=== PATIENT | female | born 1950 | race Caucasian/White ===

== ENCOUNTER 2020-06-09 10:30 | Outpatient (REF) | payer MEDICARE, SELFPAY ==
[2020-06-09 13:21] LABS: Estimated Average Glucose 163 mg/dL; Hemoglobin A1c % 7.3 %
== END 2020-06-09 10:31 | disposition home or self-care (01) ==
LOC: HO.MANLDS 10:30
PROVIDERS: PCP Internal Medicine; Visit Provider Internal Medicine
DX: E11.9 Type 2 diabetes mellitus without complications (principal)
CPT/HCPCS: 83036

== ENCOUNTER 2020-12-23 14:25 | Outpatient (REF) | payer MEDICARE, SELFPAY ==
[2020-12-23 18:08] LABS: Estimated Average Glucose 194 mg/dL; Hemoglobin A1c % 8.4 %
[2020-12-24 07:28] LABS: ~HepC Num1 0.09 S/CO (0.00-0.79); ~Hepatitis C Antibody Nonreactive (Nonreactive)
== END 2020-12-23 14:26 | disposition home or self-care (01) ==
LOC: HO.MANLDS 14:25
PROVIDERS: Visit Provider Internal Medicine
DX: Z11.59 Encounter for screening for other viral diseases (principal); E11.9 Type 2 diabetes mellitus without complications
CPT/HCPCS: 36415; 83036; 86803

== ENCOUNTER 2021-03-06 10:43 | Outpatient (REF) | payer MEDICARE, SELFPAY ==
[2021-03-06 13:36] LABS: Estimated Average Glucose 169 mg/dL; Hemoglobin A1c % 7.5 %
== END 2021-03-06 10:44 | disposition home or self-care (01) ==
LOC: HO.MANLDS 10:43
PROVIDERS: PCP Internal Medicine; Visit Provider Internal Medicine
DX: E11.9 Type 2 diabetes mellitus without complications (principal)
CPT/HCPCS: 36415; 83036

== ENCOUNTER 2021-06-12 10:34 | Outpatient (REF) | payer MEDICARE, SELFPAY ==
[2021-06-12 14:08] LABS: Hematocrit 38.7 % (37.0-47.0); Hemoglobin 12.7 g/dl (12.0-16.0); Mean Corpuscular HGB Conc 32.8 g/dl (31.0-35.0); Mean Corpuscular Hemoglobin 27.9 pg (27.0-33.0); Mean Corpuscular Volume 85.1 fL (80.0-98.0); Mean Platelet Volume 9.6 fL (9.4-12.3); Platelet Count 223 X10*3/uL (160-400); Red Blood Count 4.55 X10*6/uL (4.20-5.50); Red Cell Distribution Width 13.2 % (11.0-16.0); White Blood Count 8.6 X10*3/uL (4.8-10.8)
[2021-06-12 14:22] LABS: Estimated Average Glucose 194 mg/dL; Hemoglobin A1c % 8.4 %
[2021-06-12 14:35] LABS: Alanine Aminotransferase 21 U/L (0-31); Albumin Level 3.7 g/dL (3.5-5.0); Alkaline Phosphatase 167 U/L (39-117); Anion Gap 13 (12-20); Aspartate Amino Transferase 16 U/L (5-31); Bilirubin Total 0.7 mg/dL (0.0-1.0); Blood Urea Nitrogen 21 mg/dL (9-16); Calcium 9.2 mg/dL (8.4-10.2); Carbon Dioxide 27 mmol/L (22-29); Chloride 105 mmol/L (96-108); Cholesterol 196 mg/dL; Estimated Glomerular Filt Rate 58; Glucose Fasting 264 mg/dL (60-99); HDL Cholesterol 41 mg/dL; LDL Cholesterol Calculated 93 mg/dl; Potassium 4.9 mmol/L (3.3-5.1); Sodium 140 mmol/L (135-145); Total Protein 6.3 g/dL (6.5-8.0); Triglycerides 311 mg/dL
== END 2021-06-12 10:35 | disposition home or self-care (01) ==
LOC: HO.MANLDS 10:34
PROVIDERS: PCP Internal Medicine; Visit Provider Internal Medicine
DX: E11.9 Type 2 diabetes mellitus without complications (principal); I10 Essential (primary) hypertension
CPT/HCPCS: 36415; 80053; 80061; 83036; 85027

== ENCOUNTER 2021-09-11 09:06 | Outpatient (REF) | payer MEDICARE, SELFPAY ==
[2021-09-11 11:27] LABS: Estimated Average Glucose 160 mg/dL; Hemoglobin A1c % 7.2 %
== END 2021-09-11 09:07 | disposition home or self-care (01) ==
LOC: HO.MANLDS 09:06
PROVIDERS: PCP Internal Medicine; Visit Provider Internal Medicine
DX: E11.9 Type 2 diabetes mellitus without complications (principal)
CPT/HCPCS: 36415; 83036

== ENCOUNTER 2022-02-17 09:24 | Outpatient (REF) | payer MEDICARE, SELFPAY ==
[2022-02-17 11:45] LABS: Estimated Average Glucose 143 mg/dL; Hemoglobin A1c % 6.6 %
== END 2022-02-17 09:25 | disposition home or self-care (01) ==
LOC: HO.MANLDS 09:24
PROVIDERS: Visit Provider Internal Medicine
DX: E11.9 Type 2 diabetes mellitus without complications (principal)
CPT/HCPCS: 36415; 83036

== ENCOUNTER 2022-02-26 11:04 | Outpatient (REF) | payer MEDICARE, SELFPAY | END 2022-02-26 11:05 | disposition home or self-care (01) | LOC: HO.MANLDS 11:04 | PROVIDERS: Visit Provider Internal Medicine | DX: N39.0 Urinary tract infection, site not specified (principal) | CPT/HCPCS: 87086; 87088; 87186 ==

== ENCOUNTER 2022-08-31 09:47 | Outpatient (REF) | payer MEDICARE, SELFPAY ==
[2022-08-31 12:02] LABS: Estimated Average Glucose 154 mg/dL
== END 2022-08-31 09:48 | disposition home or self-care (01) ==
LOC: HO.MANLDS 09:47
PROVIDERS: Visit Provider Internal Medicine
DX: E11.9 Type 2 diabetes mellitus without complications (principal)
CPT/HCPCS: 36415; 83036

== ENCOUNTER 2022-11-19 09:22 | Outpatient (REF) | payer MEDICARE, SELFPAY ==
[2022-11-19 11:47] LABS: Estimated Average Glucose 143 mg/dL; Hemoglobin A1c % 6.6 %
== END 2022-11-19 09:23 | disposition home or self-care (01) ==
LOC: HO.MANLDS 09:22
PROVIDERS: Visit Provider Internal Medicine
DX: E11.9 Type 2 diabetes mellitus without complications (principal)
CPT/HCPCS: 36415; 83036

== ENCOUNTER 2023-02-28 08:54 | Outpatient (REF) | payer MEDICARE, SELFPAY ==
[2023-02-28 13:56] LABS: Estimated Average Glucose 126 mg/dL
== END 2023-02-28 08:55 | disposition home or self-care (01) ==
LOC: HO.MANLDS 08:54
PROVIDERS: Visit Provider Internal Medicine
DX: E11.9 Type 2 diabetes mellitus without complications (principal)
CPT/HCPCS: 36415; 83036

== ENCOUNTER 2023-05-30 10:10 | Outpatient (REF) | payer MEDICARE, SELFPAY ==
[2023-05-30 13:41] LABS: Estimated Average Glucose 134 mg/dL; Hemoglobin A1c % 6.3 % (<6.0)
[2023-05-30 14:24] LABS: Alanine Aminotransferase 20 U/L (0-31); Albumin Level 3.5 g/dL (3.5-5.0); Alkaline Phosphatase 171 U/L (39-117); Anion Gap 11 (12-20); Aspartate Amino Transferase 21 U/L (5-31); Bilirubin Total 0.4 mg/dL (0.0-1.0); Blood Urea Nitrogen 16 mg/dL (9-16); Calcium 9.1 mg/dL (8.4-10.2); Carbon Dioxide 27 mmol/L (22-29); Chloride 107 mmol/L (96-108); Cholesterol 140 mg/dL (<200); Estimated Glomerular Filt Rate > 60; Glucose Random 343 mg/dL (60-115); HDL Cholesterol 40 mg/dL (>40); LDL Cholesterol Calculated 42 mg/dL (<100); Potassium 3.9 mmol/L (3.3-5.1); Sodium 141 mmol/L (135-145); Total Protein 6.4 g/dL (6.5-8.0); Triglycerides 290 mg/dL (<150)
== END 2023-05-30 10:11 | disposition home or self-care (01) ==
LOC: HO.MANLDS 10:10
PROVIDERS: Visit Provider Internal Medicine
DX: E11.9 Type 2 diabetes mellitus without complications (principal)
CPT/HCPCS: 36415; 80053; 80061; 83036

== ENCOUNTER 2023-08-31 10:27 | Outpatient (REF) | payer MEDICARE, SELFPAY ==
[2023-08-31 13:52] LABS: Estimated Average Glucose 126 mg/dL
== END 2023-08-31 10:28 | disposition home or self-care (01) ==
LOC: HO.MANLDS 10:27
PROVIDERS: Visit Provider Internal Medicine
DX: E11.9 Type 2 diabetes mellitus without complications (principal)
CPT/HCPCS: 36415; 83036

== ENCOUNTER 2023-12-19 07:55 | Outpatient (REF) | payer MEDICARE, SELFPAY ==
[2023-12-19 13:32] LABS: Estimated Average Glucose 123 mg/dL; Hemoglobin A1c % 5.9 % (<6.0)
[2023-12-19 13:42] LABS: Alanine Aminotransferase 30 U/L (0-31); Albumin Level 3.8 g/dL (3.5-5.0); Alkaline Phosphatase 195 U/L (39-117); Anion Gap 9 (12-20); Aspartate Amino Transferase 23 U/L (5-31); Bilirubin Total 0.6 mg/dL (0.0-1.0); Blood Urea Nitrogen 17 mg/dL (9-16); Carbon Dioxide 30 mmol/L (22-29); Chloride 107 mmol/L (96-108); Cholesterol 150 mg/dL (<200); Estimated Glomerular Filt Rate > 60; Glucose Random 143 mg/dL (60-115); HDL Cholesterol 45 mg/dL (>40); LDL Cholesterol Calculated 56 mg/dL (<100); Potassium 5.2 mmol/L (3.3-5.1); Sodium 141 mmol/L (135-145); Total Protein 6.7 g/dL (6.5-8.0); Triglycerides 245 mg/dL (<150)
== END 2023-12-19 07:56 | disposition home or self-care (01) ==
LOC: HO.MANLDS 07:55
PROVIDERS: Visit Provider Internal Medicine
DX: E11.9 Type 2 diabetes mellitus without complications (principal)
CPT/HCPCS: 36415; 80053; 80061; 83036

== ENCOUNTER 2024-03-19 14:34 | Outpatient (REF) | payer MEDICARE, SELFPAY ==
[2024-03-19 22:44] LABS: MANUAL DIFF FLAG NO
[2024-03-19 22:50] LABS: Basophils Absolute Auto 0.1 X10*3/uL (0.0-0.2); Basophils Percent Auto 0.6 % (0-2); Eosinophils Absolute Auto 0.2 X10*3/uL (0.0-0.4); Eosinophils Percent Auto 2.4 % (0-4); Hematocrit 37.3 % (37.0-47.0); Hemoglobin 12.2 g/dl (12.0-16.0); Imm Gran Abs Auto 0.04 X10*3/uL (0.00-0.03); Imm Gran Pct Auto 0.5 % (0.0-0.4); Lymphocytes Absolute Auto 1.3 X10*3/uL (1.2-4.9); Lymphocytes Percent Auto 14.7 % (20-40); Mean Corpuscular HGB Conc 32.7 g/dl (31.0-35.0); Mean Corpuscular Hemoglobin 28.8 pg (27.0-33.0); Mean Platelet Volume 9.7 fL (9.4-12.3); Monocytes Absolute Auto 0.3 X10*3/uL (0.1-1.2); Monocytes Percent Auto 3.6 % (2-11); Neutrophils Absolute Auto 6.7 x10*3/uL (2.0-8.3); Neutrophils Percent Auto 78.2 % (45-73); Platelet Count 193 X10*3/uL (160-400); Red Blood Count 4.24 X10*6/uL (4.20-5.50); Red Cell Distribution Width 13.3 % (11.0-16.0); White Blood Count 8.5 X10*3/uL (4.8-10.8)
[2024-03-20 05:28] LABS: Estimated Average Glucose 126 mg/dL
== END 2024-03-19 14:35 | disposition home or self-care (01) ==
LOC: HO.WFDLDS 14:34
PROVIDERS: Visit Provider Internal Medicine
DX: Z13.89 Encounter for screening for other disorder (principal)
CPT/HCPCS: 36415; 83036; 85025

== ENCOUNTER 2024-06-22 09:48 | Outpatient (REF) | payer MEDICARE, SELFPAY ==
[2024-06-22 11:33] LABS: Estimated Average Glucose 137 mg/dL; Hemoglobin A1C 148.3058 umol/L; Hemoglobin A1c % 6.4 % (<6.0); Total Hemoglobin (HGBA1C) 3202.9852 umol/L
== END 2024-06-22 09:49 | disposition home or self-care (01) ==
LOC: HO.WFDLDS 09:48
PROVIDERS: Visit Provider Internal Medicine
DX: E11.9 Type 2 diabetes mellitus without complications (principal)
CPT/HCPCS: 36415; 83036

== ENCOUNTER 2024-09-26 11:11 | Outpatient (REF) | payer MEDICARE, SELFPAY ==
[2024-09-26 13:36] LABS: Estimated Average Glucose 128 mg/dL; Hemoglobin A1C 149.9161 umol/L; Hemoglobin A1c % 6.1 % (<6.0); Total Hemoglobin (HGBA1C) 3448.8616 umol/L
== END 2024-09-26 11:12 | disposition home or self-care (01) ==
LOC: HO.MANLDS 11:11
PROVIDERS: Visit Provider Internal Medicine
DX: E11.9 Type 2 diabetes mellitus without complications (principal)
CPT/HCPCS: 36415; 83036

== ENCOUNTER 2025-01-02 10:55 | Outpatient (REF) | payer MEDICARE, SELFPAY ==
[2025-01-02 13:42] LABS: Estimated Average Glucose 131 mg/dL; Hemoglobin A1c % 6.2 % (<6.0); Total Hemoglobin (HGBA1C) 3236.8714 umol/L
== END 2025-01-02 10:56 | disposition home or self-care (01) ==
LOC: HO.MANLDS 10:55
PROVIDERS: Visit Provider Internal Medicine
DX: E11.9 Type 2 diabetes mellitus without complications (principal)
CPT/HCPCS: 36415; 83036

== ENCOUNTER 2025-03-20 10:23 | Outpatient (REF) | payer MEDICARE, SELFPAY ==
--- OUTSIDE RECORDS SUMMARY | 2025-03-20 12:36 | XMS_ITS | Encounter Summary ---
Author Organization [facility] Address [address] [facility] [address] [place] [address] Phone Care Team Providers Care Waste Disposal Plant Operator Name Role Phone Hemant Peter DO Primary Care Provider [phone] Encounter Details Date Type Department Care Team ([facility] st Contact Info) Description 06/25/2024 Transcribe Orders Virtual Department [address] [place] [address] Hemant Peter DO [address] [facility] [place] [address] [place] [address] [email or web address] Encounter for screening mammogram for malignant neoplasm of breast (Primary Dx); Screening for osteoporosis Social History Tobacco Use Types Packs/Day Years Used Date Smoking Tobacco: Former Smokeless Tobacco: Never Comments:smoked < 1ppd for 4 0 years Alcohol Use Standard Drinks/Week Comments No 0 (1 standard drink = 0.6 oz pur e alcohol) Education Answer Date Recorded Are you interested in more education? Not on oswald e 11/05/2022 Are you concerned about learning? Not on file 11/05/2022 No 11/05/2022 No 11/05/2022 Digital Access Answer Date Recorded No 12/04/2022 No 12/04/2022 Reliable internet access at home? Not on file 12/04/2022 Device with a working camera? Not on file Comments No Sex and Gender Information Value Date Recorded Sex Assigned at Female 01/05/2018 2:09 PM EDT Legal Sex Female 10:04 PM EDT Gender Identity Female 01/05/2018 2:09 PM EDT Sexual Orientation Straight 01/05/2018 2: 09 PM EDT documented as of this encounter Plan of Treatment Scheduled Orders Name Type Priority Associated Diagnoses Orde r Schedule DXA Screening Imaging Routine Screening for osteoporosis Expected: 07/25/2024, Expires: 06/25/2025 documented as of this encounter Results * BI MAMMOGRAM SCREENING WITH TOMOSYNTHESIS WITH CAD (BILATERAL) (01/07/2025 10:09 AM EDT) Anatomical Region Laterality Modality Breast Left, Breast Right, Breast Bilateral Bila teral Mammography 01/08/2025 11:0 9 AM EDT Impressions 01/08/2025 11:10 AM EDT No mammographic evidence of malignancy in either breast. Annual screening mammography is recommended. BI-RADS 1 NEGATIVE The patient will be notified of the results and recommendations. Narrative 01/08/2025 11:10 AM EDT BI MAMMOGRAM SCREENING WITH TOMOSYNTHESIS WITH CAD (BILATERAL) Additional patient information: Screening. COMPARISON: Comparison is made with relevant prior imaging. Breast composition: There are scattered areas of fibroglandular density. FINDINGS: No abnormal masses, suspicious calcifications, or other significant findings are identified mammographically in either breast. There has been no significant interval change. Procedure Note Jeanette Severino MD - 01/08/2025 BI MAMMOGRAM SCREENING WITH TOMOSYNTHESIS WITH CAD (BILATERAL) Additional patient information: Screening. COMPARISON: Comparison is made with relevant prior imaging. Breast composition: There are scattered areas of fibroglandular density. FINDINGS: No abnormal masses, suspicious calcifications, or other significantfindings are identified mammographically in either breast. There has been no significant interval change. IMPRESSION: No mammographic evidence of malignancy in either breast. Annual screening mammography is recommended. BI-RADS 1 NEGATIVE The patient will be notified of the results and recommendations. us Hemant A Bigda DO IMG MG EXAMS Final Result documented in this encounter Visit Diagnoses Diagnosis Encounter for screening mammogram for malignant neoplasm of breast- Primary Screening for osteoporosis Special screening for osteoporosis Encounter for screening mammogram for malignant neoplasm of breast documented in this encounter Care Teams Waste Disposal Plant Operator Relationship Specialty Start Date End Date BrittaniHemant DO Yehuda [email or web address] PCP - General Internal Medicine 06/14/17 documented as of this encounter Additional Source Comments The information contained in this document represents components of the legal health record. It is not the complete legal health record.[facility]
--- OUTSIDE RECORDS SUMMARY | 2025-03-20 12:36 | XMS_ITS | Encounter Summary ---
Author Organization [facility] Address [address] [facility] [address] [place] [address] Phone Care Team Providers Care Instrument Operator Name Role Phone Hemant Peter DO Primary Care Provider [phone] Encounter Details Date Type Department Care Team ([facility] st Contact Info) Description 03/14/2018 Ancillary Orders Virtual Department [address] [place] [address] Hemant Peter DO [address] [facility] [place] [address] [place] [address] [email or web address] Breast screening Social History Tobacco Use Types Packs/Day Years Used Date Smoking Tobacco: Former Smokeless Tobacco: Never Alcohol Use Standard Drinks/Week Comments No 0 (1 standard drink = 0.6 oz pur e alcohol) Comments No Sex and Gender Information Value Date Recorded Sex Assigned at Female 01/05/2018 2:09 PM EDT Legal Sex Female 10:04 PM EDT Gender Identity Female 01/05/2018 2:09 PM EDT Sexual Orientation Straight 01/05/2018 2: 09 PM EDT documented as of this encounter Plan of Treatment Not on file documented as of this encounter Results * BI MAMMOGRAM SCREENING WITH TOMOSYNTHESIS WITH CAD (BILATERAL) (06/15/2018 10:12 AM EST) Anatomical Region Laterality Modality Breast Left, Breast Right, Breast Bilateral Bila teral Mammography 06/16/2018 1:44 PM EST Impressions 06/16/2018 1:46 PM EST Stable appearance relative to prior imaging. No findings suggestive of malignancy are seen. BI-RADS CATEGORY: 1 - Negative. DENSITY: There are scattered fibroglandular densities. POS - [id number] Narrative 06/16/2018 1:46 PM EST Full-field digital mammography is obtained with computer-aided detection. Comparison with prior imaging from 06/14/2017 is made with older imaging dating back as far as 05/15/2012 also reviewed. There is scattered fibroglandular density evident in the breasts. In addition to 2-D C view imaging, tomosynthesis images are obtained in two projections of each breast. No dominant soft tissue mass of concern, suspicious cluster of calcifications, significant interval skin changes, or architectural distortion is identified. Procedure Note Chance Foote MD - 06/16/2018 Full-field digital mammography is obtained with computer-aided detection.Comparison with prior imaging from 06/14/2017 is made with older imagingdating back as far as 05/15/2012 also reviewed. There is scattered fibroglandular density evident in the breasts. Inaddition to 2-D C view imaging, tomosynthesis images are obtained in twoprojections of each breast. No dominant soft tissue mass of concern, suspicious cluster ofcalcifications, significant interval skin changes, or architecturaldistortion is identified. IMPRESSION: Stable appearance relative to prior imaging. No findings suggestive ofmalignancy are seen. BI-RADS CATEGORY: 1 - Negative. DENSITY: There are scattered fibroglandular densities. POS - [id number] Hemant Peter DO IMG MG EXAMS Final Result documented in this encounter Visit Diagnoses Diagnosis Breast screening Breast screening, unspecified Breast screening Breast screening, unspecified documented in this encounter Additional Health Concerns Infection Onset Date Last Indicated Resolved Time CoV-Risk 09/07/2023 09/07/2023 09/18/2023 1:21 AM EST documented as of this encounter Care Teams Instrument Operator Relationship Specialty Start Date End Date Hemant Peter DO PCP - General Internal Medicine 06/14/17 documented as of this encounter Additional Source Comments The information contained in this document represents components of the legal health record. It is not the complete legal health record.[facility]
--- OUTSIDE RECORDS SUMMARY | 2025-03-20 12:36 | XMS_ITS | Encounter Summary ---
Author Organization [facility] Address [address] [facility] [address] [place] [address] Phone Care Team Providers Care Professional Sports Scout Name Role Phone Hemant Peter DO Primary Care Provider [phone] Encounter Details Date Type Department Care Team ([facility] st Contact Info) Description 06/09/2020 Transcribe Orders Virtual Department [address] [place] [address] Hemant Peter DO [address] [facility] [place] [address] [place] [address] [email or web address] Left-sided low back pain with left-sided sciatica, unspecified chronicity (Primary Dx) Social History Tobacco Use Types Packs/Day Years [...] documented as of this encounter Results * XR LUMBOSACRAL SPINE 4 OR MORE VIEWS (07/15/2020 10:18 AM EST) Anatomical Region Laterality Modality L-spine Computed Radiogr aphy 07/15/2020 12:3 4 PM EST Impressions 07/15/2020 12:37 PM EST Multilevel degenerative disc disease with spurring. Somewhat lesser facet arthropathy. Probable large stone left renal pelvis. Narrative 07/15/2020 12:37 PM EST Lumbar spine 5 views. No prior. There is multilevel degenerative change with fairly prominent left-sided spurring across L1 to. There is degenerative disc disease with disc height loss at all levels with relative sparing at L1-2. Vacuum phenomena seen at multiple levels. Facet arthropathy also present to a lesser degree and most prominent at L4-5 and L5-S1. No compression deformity or bony destructive lesions identified. What appears to be a large stone in the region of the left renal pelvis is noted. This measures approximately 1.4 x 2.2 cm including some magnification. There is another density above and medial to this which could be vascular, within the kidney, or post-operative. No gross sclerosis or erosion SI joints. No spondylolysis or spondylolisthesis. Chain sutures noted in the left upper quadrant. Procedure Note Yandel Pickens MD - 07/15/2020 Lumbar spine 5 views. No prior. There is multilevel degenerative changewith fairly prominent left-sided spurring across L1 to. There isdegenerative disc disease with disc height loss at all levels withrelative sparing at L1-2. Vacuum phenomena seen at multiple levels. Facetarthropathy also present to a lesser degree and most prominent at L4-5 andL5-S1. No compression deformity or bony destructive lesions identified.What appears to be a large stone in the region of the left renal pelvis isnoted. This measures approximately 1.4 x 2.2 cm including somemagnification. There is another density above and medial to this whichcould be vascular, within the kidney, or post-operative. No grosssclerosis or erosion SI joints. No spondylolysis or spondylolisthesis.Chain sutures noted in the left upper quadrant. IMPRESSION: Multilevel degenerative disc disease with spurring. Somewhat lesser facetarthropathy. Probable large stone left renal pelvis. us Hemant A Bigda DO IMG XR SPINE Final Result documented in this encounter Visit Diagnoses Diagnosis Left-sided low back pain with left-sided sciatica, unspecified chronicity- Primary Left-sided low back pain with left-sided sciatica, unspecified chronicity documented in this encounter Additional Health Concerns Infection Onset Date Last Indicated Resolved Time CoV-Risk 09/07/2023 09/07/2023 09/18/2023 1:21 AM EST documented as of this encounter Care Teams Professional Sports Scout Relationship Specialty Start Date End Date Hemant Peter DO [email or web address] PCP - General Internal Medicine 06/14/17 documented as of this encounter Additional Source Comments The information contained in this document represents components of the legal health record. It is not the complete legal health record.[facility]
--- OUTSIDE RECORDS SUMMARY | 2025-03-20 12:36 | XMS_ITS | Encounter Summary ---
Author Organization [facility] Address [address] [facility] [address] [place] [address] Phone Care Team Providers Care Functional Tester Name Role Phone Hemant Peter DO Primary Care Provider [phone] Encounter Details Date Type Department Care Team (Late st Contact Info) Description 03/18/2021 Procedure Pass [facility], Ct Scan - [address] [address] Social History Tobacco Use Types Packs/Day Years [...] PM EDT documented as of this encounter Functional Status * Calculated C-SSRS Risk Score (Lifetime/Recent) Answer Date of Assessment Author No Risk Indicated 03/18/2021 5:22 AM EDT Stephanie Rice RN * [place] Suicide Severity Rating Scale (Screener/Recent Self-Report) Question Answer Date of Assessment Author 1. Wish to be (Past 1 Month) No 03/18/2021 5:22 AM EDT Rhiannon Justin RN 2. Non-Specific Active Suici chaz Thoughts (Past 1 Month) No 03/18/2021 5:22 AM EDT Chivo Justin RN 6. Suicidal Behavior (Lifetime) No 1 5:22 AM EDT Stephanie Justin RN documented as of this encounter Plan of Treatment Not on file documented as of this encounter Visit Diagnoses Not on filedocumented in this encounter Additional Health Concerns Infection Onset Date Last Indicated Resolved Time CoV-Risk 09/07/2023 09/07/2023 09/18/2023 1:21 AM EST documented as of this encounter Care Teams Functional Tester Relationship Specialty Start Date End Date Hemant Peter DO [email or web address] PCP - General Internal Medicine 06/14/17 documented as of this encounter Additional Source Comments The information contained in this document represents components of the legal health record. It is not the complete legal health record.[facility]
--- OUTSIDE RECORDS SUMMARY | 2025-03-20 12:36 | XMS_ITS | Encounter Summary ---
Author Organization [facility] Address [address] [facility] [address] [place] [address] Phone Care Team Providers Care Computer Network Engineer Name Role Phone Unknown, Unknown Primary Care Provider Hemant Johnson DO Primary Care Provider [phone] Encounter Details Date Type Department Care Team (Late st Contact Info) Description 04/30/2017 Ancillary Orders [facility] [address] [place] [address] Hemant Peter DO [address] [facility] [place] [address] [place] [address] [email or web address] Visit for screening mammogram Social History Tobacco Use Types Packs/Day Years Used Date Smoking Tobacco: Never Assessed Comments Unknown Sex and Gender Information Value Date Recorded Sex Assigned at Female 01/05/2018 2:09 PM EDT Legal Sex Female 10:04 PM EDT Gender Identity Female 01/05/2018 2:09 PM EDT Sexual Orientation Straight 01/05/2018 2: 09 PM EDT documented as of this encounter Plan of Treatment Not on file documented as of this encounter Results * BI MAMMOGRAM SCREENING WITH TOMOSYNTHESIS WITH CAD (BILATERAL) (06/14/2017 2:08 PM EST) Anatomical Region Laterality Modality Breast Left, Breast Right, Breast Bilateral Bila teral Mammography 06/14/2017 4:12 PM EST Impressions 06/14/2017 4:15 PM EST No mammographic change indicative of malignancy. Routine screening is recommended. BI-RADS CATEGORY: 1 - Negative. DENSITY: There are scattered fibroglandular densities. POS - [id number] Narrative 06/14/2017 4:15 PM EST Bilateral full-field digital screening mammography is obtained and read in conjunction with computer-aided detection. Tomosynthesis as well as 2-D C view imaging of both breasts in two planes also obtained. Comparison made to multiple prior, most recent 06/09/2016, and most remote 05/11/2011. No dominant mass, suspicious microcalcification, architectural distortion, focal skin thickening or worrisome asymmetry is detected. Procedure Note Meche Alvarez MD - 06/14/2017 Bilateral full-field digital screening mammography is obtained and read inconjunction with computer-aided detection. Tomosynthesis as well as 2-D Cview imaging of both breasts in two planes also obtained. Comparison madeto multiple prior, most recent 06/09/2016, and most remote 05/11/2011. No dominant mass, suspicious microcalcification, architectural distortion,focal skin thickening or worrisome asymmetry is detected. IMPRESSION: No mammographic change indicative of malignancy. Routine screening isrecommended. BI-RADS CATEGORY: 1 - Negative. DENSITY: There are scattered fibroglandular densities. POS - CDHMAMA Hemant Peter DO IMG MG EXAMS Final Result documented in this encounter Visit Diagnoses Diagnosis Visit for screening mammogram Visit for screening mammogram documented in this encounter Additional Health Concerns Infection Onset Date Last Indicated Resolved Time CoV-Risk 09/07/2023 09/07/2023 09/18/2023 1:21 AM EST documented as of this encounter Care Teams Computer Network Engineer Relationship Specialty Start Date End Date Unknown, Unknown, PCP - General 04/30/17 06/13/17 Hemant Peter DO [email or web address] PCP - General Internal Medicine 06/14/17 documented as of this encounter Additional Source Comments The information contained in this document represents components of the legal health record. It is not the complete legal health record.[facility]
--- OUTSIDE RECORDS SUMMARY | 2025-03-20 12:36 | XMS_ITS | Encounter Summary ---
Author Organization [facility] Address [address] [place] [address] Phone Care Team Providers Care Fish Hatchery Worker Name Role Phone Hemant Peter DO Primary Care Provider [phone] Encounter Details Date Type Department Care Team (Late st Contact Info) Description 02/22/2022 Procedure Pass [address] [address] Social History Tobacco Use Types Packs/Day Years [...] documented as of this encounter Care Teams Fish Hatchery Worker Relationship Specialty Start Date End Date Hemant Peter DO PCP - General Internal Medicine 06/14/17 documented as of this encounter Additional Source Comments The information contained in this document represents components of the legal health record. It is not the complete legal health record.[facility]
--- OUTSIDE RECORDS SUMMARY | 2025-03-20 12:36 | XMS_ITS | Encounter Summary ---
Author Organization [facility] Address [address] [place] [address] Phone Care Team Providers Care Stage Setting Painter Apprentice Name Role Phone Hemant Peter DO Primary Care Provider [phone] Encounter Details Date Type Department Care Team (Late st Contact Info) Description 06/25/2024 Procedure Pass [facility], [address] [address] Social History Tobacco Use Types Packs/Day Years [...] Diagnoses Not on filedocumented in this encounter Care Teams Stage Setting Painter Apprentice Relationship Specialty Start Date End Date Hemant Peter DO [email or web address] PCP - General Internal Medicine 06/14/17 documented as of this encounter Additional Source Comments The information contained in this document represents components of the legal health record. It is not the complete legal health record.[facility]
--- OUTSIDE RECORDS SUMMARY | 2025-03-20 12:36 | XMS_ITS | Encounter Summary ---
Author Organization [facility] Address [address] [place] [address] Phone Care Team Providers Care Driver Operator Name Role Phone Hemant Peter DO Primary Care Provider [phone] Encounter Details Date Type Department Care Team (Late st Contact Info) Description 03/24/2019 Procedure Pass [address] [address] Social History Tobacco Use Types Packs/Day Years [...] documented as of this encounter Care Teams Driver Operator Relationship Specialty Start Date End Date Hemant Peter DO PCP - General Internal Medicine 06/14/17 documented as of this encounter Additional Source Comments The information contained in this document represents components of the legal health record. It is not the complete legal health record.[facility]
--- OUTSIDE RECORDS SUMMARY | 2025-03-20 12:36 | XMS_ITS | Encounter Summary ---
Author Organization [facility] Address [address] [place] [address] Phone Care Team Providers Care Cook Railroad Name Role Phone Hemant Peter Primary Care Provider [phone] Encounter Details Date Type Department Care Team (Late st Contact Info) Description 03/24/2019 Procedure Pass [address] [address] Social History Tobacco Use Types Packs/Day Years [...] PM EDT documented as of this encounter Last Filed Vital Signs Vital Sign Reading Time Taken Comments Blood Pressure - - Pulse - - Temperature - - Respiratory Rate - - Oxygen Saturation - - Inhaled Oxygen Concentration - - Weight 88.5 kg (195 lb) 03/24/2019 12:00 PM EDT Height 152.4 cm (5') 03/24/2019 12:00 PM EDT Body Mass Index 38.08 03/24/2019 12:00 PM EDT documented in this encounter Plan of Treatment Not on file documented as of this encounter Visit Diagnoses Not on filedocumented in this encounter Additional Health Concerns Infection Onset Date Last Indicated Resolved Time CoV-Risk 09/07/2023 09/07/2023 09/18/2023 1:21 AM EST documented as of this encounter Care Teams Cook Railroad Relationship Specialty Start Date End Date Hemant Peter DO [email or web address] PCP - General Internal Medicine 06/14/17 documented as of this encounter Additional Source Comments The information contained in this document represents components of the legal health record. It is not the complete legal health record.[facility]
--- OUTSIDE RECORDS SUMMARY | 2025-03-20 12:36 | XMS_ITS | Encounter Summary ---
Author Organization [facility] Address [address] [address] Phone Care Team Providers Care Press Brake Operator Name Role Phone Hemant Peter DO Primary Care Provider [phone] Reason for Referral * MRI/CAT Scan - Closed Specialty Diagnoses / Procedures Referred By Contac t Referred To Contact Radiology Diagnoses Peripheral visual field defect, unspecified laterality Procedures CT Head Hemant Peter DO Phone: tel: fax: [email or web address] Referral ID Status Reason Start Date Expiration Date Visits Re quested Visits Authorized [id number] Closed 03/17/2018 03/17/2019 1 1 Encounter Details Date Type Department Care Team (Late st Contact Info) Description 03/17/2018 Ancillary Orders Virtual Department [address] [place] [address] Hemant Peter DO [address] [facility] [place] [address] [email or web address] Peripheral visual field defect, unspecified laterality Social History Tobacco Use Types Packs/Day Years [...] documented as of this encounter Results * CT HEAD WITHOUT CONTRAST (03/17/2018 3:26 PM EDT) Anatomical Region Laterality Modality Head Computed Tomogra phy 03/17/2018 3:27 PM EDT Impressions 03/17/2018 3:32 PM EDT Other than minor atrophy and minor small vessel ischemic disease, the examination is unremarkable. No explanation for visual field defect is seen. TOTAL CTDIvol: 58.40 mGy S/S: Visual field defect, unspecified laterality. . POS - [id number] Narrative 03/17/2018 3:32 PM EDT COMPARISON: None TECHNIQUE: Nonenhanced head CT from skull base to vertex with multi-planar reformats. Manual dose reduction technique tailored for patient and site of imaging. CT HEAD FINDINGS: The ventricular system is of appropriate size and position for the minor atrophic changes present. No extra-axial fluid collection or shift of midline structures is seen. No mass effect is noted. There is scattered focal areas of white matter low-density consistent with small vessel ischemic disease. No findings of an acute infarct or acute intracranial hemorrhage are noted. The cerebellar tonsils are normal in position. The sella turcica is unremarkable. The orbits as visualized are within the range of normal. Procedure Note Chance Foote MD - 03/17/2018 COMPARISON: None TECHNIQUE: Nonenhanced head CT from skull base to vertex with multi- planarreformats. Manual dose reduction technique tailored for patient and siteof imaging. CT HEAD FINDINGS: The ventricular system is of appropriate size and position for the minoratrophic changes present. No extra-axial fluid collection or shift of midline structures is seen. Nomass effect is noted. There is scattered focal areas of white matter low-density consistent withsmall vessel ischemic disease. No findings of an acute infarct or acute intracranial hemorrhage arenoted. The cerebellar tonsils are normal in position. The sella turcica isunremarkable. The orbits as visualized are within the range of normal. IMPRESSION: Other than minor atrophy and minor small vessel ischemic disease, theexamination is unremarkable. No explanation for visual field defect isseen. TOTAL CTDIvol: 58.40 mGy S/S: Visual field defect, unspecified laterality. . POS - [id number] us Hemant Peter DO IMG CT HEAD/NECK Final Result documented in this encounter Visit Diagnoses Diagnosis Peripheral visual field defect, unspecified laterality Peripheral visual field defect, unspecified laterality documented in this encounter Additional Health Concerns Infection Onset Date Last Indicated Resolved Time CoV-Risk 09/07/2023 09/07/2023 09/18/2023 1:21 AM EST documented as of this encounter Care Teams Press Brake Operator Relationship Specialty Start Date End Date Hemant Peter DO [email or web address] PCP - General Internal Medicine 06/14/17 documented as of this encounter Additional Source Comments The information contained in this document represents components of the legal health record. It is not the complete legal health record.[facility]
--- OUTSIDE RECORDS SUMMARY | 2025-03-20 12:36 | XMS_ITS | Encounter Summary ---
Author Organization [facility] Address [address] [place] [address] Phone Care Team Providers Care Blending Tank Tender Name Role Phone Hemant Peter DO Primary Care Provider [phone] Encounter Details Date Type Department Care Team ([facility] st Contact Info) Description 06/09/2020 Ancillary Orders Virtual Department [address] [place] [address] Hemant Peter DO [address] [facility] [address] [place] [address] Other specified disorders of bone density and structure, unspecified site; Osteopenia, unspecified location Social History Tobacco Use Types Packs/Day Years [...] documented as of this encounter Results * BD DXA AXIAL (SPINE) WITH HIP (07/15/2020 9:55 AM EST) Anatomical Region Laterality Modality Bone Density Bone Density 07/15/2020 10:4 6 AM EST Impressions 07/15/2020 10:48 AM EST Overall normal bone mineral density. Narrative 07/15/2020 10:48 AM EST This is a 70-year-old postmenopausal white female with no perceived height loss, not on replacement therapy. She reports no family history of osteoporosis. This is a baseline study. Evaluation of the lumbar spine and hips was performed and appears to be technically adequate. Total bone mineral density in the L1-L4 vertebral bodies was calculated at 1.053 gm/cm2 with a T score of 0.1. This falls within the WHO classification of normal. Total bone mineral density in the right proximal femur was calculated at 0.870 gm/cm2 with a T-score of -0.6 falling within the WHO classification of normal. Right femoral neck bone mineral density was calculated at 0.625 gm/cm2 with a T-score of -2.0. Total bone mineral density in the left proximal femur was calculated at 0.835 gm/cm2 with a T-score of -0.9 falling within the WHO classification of normal. Bone mineral density in the left femoral neck was calculated at 0.616 gm/cm2 with a T-score of -2.1. FRAX: WHO Fracture Risk Assessment 10 year fracture risk Major Osteoporotic Fracture: 11% . Hip Fracture: 2.2% . Procedure Note Yandel Pickens MD - 07/15/2020 This is a 70-year-old postmenopausal white female with no perceived heightloss, not on replacement therapy. She reports no family history ofosteoporosis. This is a baseline study. Evaluation of the lumbar spine and hips was performed and appears to betechnically adequate. Total bone mineral density in the L1-L4 vertebral bodies was calculated at1.053 gm/cm2 with a T score of 0.1. This falls within the WHOclassification of normal. Total bone mineral density in the right proximal femur was calculated at0.870 gm/cm2 with a T-score of -0.6 falling within the WHO classificationof normal. Right femoral neck bone mineral density was calculated at 0.625gm/cm2 with a T-score of -2.0. Total bone mineral density in the left proximal femur was calculated at0.835 gm/cm2 with a T-score of -0.9 falling within the WHO classificationof normal. Bone mineral density in the left femoral neck was calculated at0.616 gm/cm2 with a T-score of -2.1. FRAX: WHO Fracture Risk Assessment 10 year fracture risk Major Osteoporotic Fracture: 11% . Hip Fracture: 2.2% . IMPRESSION: Overall normal bone mineral density. us Hemant Peter DO IMG BD BONE DENSITY DEXA Final R esult documented in this encounter Visit Diagnoses Diagnosis Other specified disorders of bone density and structure, unspecified site Osteopenia, unspecified location Other specified disorders of bone density and structure, unspecified site Osteopenia, unspecified location documented in this encounter Additional Health Concerns Infection Onset Date Last Indicated Resolved Time CoV-Risk 09/07/2023 09/07/2023 09/18/2023 1:21 AM EST documented as of this encounter Care Teams Blending Tank Tender Relationship Specialty Start Date End Date Hemant Peter DO PCP - General Internal Medicine 06/14/17 documented as of this encounter Additional Source Comments The information contained in this document represents components of the legal health record. It is not the complete legal health record.[facility]
--- OUTSIDE RECORDS SUMMARY | 2025-03-20 12:36 | XMS_ITS | Encounter Summary ---
Author Organization [facility] Address [address] [place] [address] Phone Care Team Providers Care Staff Nurse Anesthetist Name Role Phone Hemant Peter DO Primary Care Provider [phone] Encounter Details Date Type Department Care Team (Late st Contact Info) Description 03/24/2019 Procedure Pass [address] [address] Social History Tobacco Use Types Packs/Day Years [...] documented as of this encounter Care Teams Staff Nurse Anesthetist Relationship Specialty Start Date End Date Hemant Peter DO PCP - General Internal Medicine 06/14/17 documented as of this encounter Additional Source Comments The information contained in this document represents components of the legal health record. It is not the complete legal health record.[facility]
--- OUTSIDE RECORDS SUMMARY | 2025-03-20 12:36 | XMS_ITS | Encounter Summary ---
Author Organization [facility] Address [address] [facility] [address] [place] [address] Phone Care Team Providers Care Cut Off Sawyer Name Role Phone Hemant Peter DO Primary Care Provider [phone] Encounter Details Date Type Department Care Team (Late st Contact Info) Description 12/12/2017 Ancillary Orders Virtual Department [address] [place] [address] Hemant Peter DO [address] [facility] [place] [address] [place] [address] [email or web address] Pneumonia due to infectious organism, unspecified laterality, unspecified part of lung Social History Tobacco Use Types Packs/Day Years Used Date Smoking Tobacco: Never Assessed Comments No Sex and Gender Information Value Date Recorded Sex Assigned at Female 01/05/2018 2:09 PM EDT Legal Sex Female 10:04 PM EDT Gender Identity Female 01/05/2018 2:09 PM EDT Sexual Orientation Straight 01/05/2018 2: 09 PM EDT documented as of this encounter Plan of Treatment Not on file documented as of this encounter Results * XR CHEST PA AND LATERAL 2 VIEWS (12/13/2017 10:04 AM EDT) Anatomical Region Laterality Modality Chest Radiographic Jayla ging 12/13/2017 10:0 7 AM EDT Impressions 12/13/2017 10:08 AM EDT No acute chest disease. POS - [id number] Narrative 12/13/2017 10:08 AM EDT HISTORY: As above. COMPARISON: 07/14/2010. CHEST RADIOGRAPH FINDINGS: 2 views obtained. Heart is normal in size. Stable mildly prominent central pulmonary vasculature. Lungs are clear. Stable thoracic spondylosis and large habitus. Procedure Note Dionne Ames MD - 12/13/2017 HISTORY: As above. COMPARISON: 07/14/2010. CHEST RADIOGRAPH FINDINGS: 2 views obtained. Heart is normal in size. Stable mildly prominentcentral pulmonary vasculature. Lungs are clear. Stable thoracicspondylosis and large habitus. IMPRESSION: No acute chest disease. POS - [id number] us Hemant Peter DO IMG XR CHEST Final Result documented in this encounter Visit Diagnoses Diagnosis Pneumonia due to infectious organism, unspecified laterality, unspecified part of lung Pneumonia due to infectious organism, unspecified laterality, unspecified part of lung documented in this encounter Additional Health Concerns Infection Onset Date Last Indicated Resolved Time CoV-Risk 09/07/2023 09/07/2023 09/18/2023 1:21 AM EST documented as of this encounter Care Teams Cut Off Sawyer Relationship Specialty Start Date End Date Hemant Peter DO [email or web address] PCP - General Internal Medicine 06/14/17 documented as of this encounter Additional Source Comments The information contained in this document represents components of the legal health record. It is not the complete legal health record.[facility]
--- OUTSIDE RECORDS SUMMARY | 2025-03-20 12:36 | XMS_ITS | Encounter Summary ---
Author Organization [facility] Address [address] [place] [id number] Phone Care Team Providers Care Provider Relations Advocate Name Role Phone Hemant Peter DO Primary Care Provider [phone] Encounter Details Date Type Department Care Team (Late st Contact Info) Description 03/17/2018 Procedure Pass [facility], Ct Scan - [address] [address] Social History Tobacco Use Types Packs/Day Years [...] documented as of this encounter Care Teams Provider Relations Advocate Relationship Specialty Start Date End Date Hemant Peter DO PCP - General Internal Medicine 06/14/17 documented as of this encounter Additional Source Comments The information contained in this document represents components of the legal health record. It is not the complete legal health record.[facility]
--- OUTSIDE RECORDS SUMMARY | 2025-03-20 12:36 | XMS_ITS | Encounter Summary ---
Author Organization [facility] Address [address] [facility] [address] [place] [address] Phone Care Team Providers Care Hydraulic Pile Hammer Operator Name Role Phone Hemant Peter DO Primary Care Provider [phone] Encounter Details Date Type Department Care Team ([facility] st Contact Info) Description 03/17/2018 Transcribe Orders [facility] Laboratory [address] [place] [address] Hemant Peter DO [address] [facility] [place] [address] [place] [address] [email or web address] Hypertension, unspecified type (Primary Dx) Social History Tobacco Use Types [...] documented as of this encounter Results * (ABNORMAL) Basic metabolic panel (03/17/2018 3:02 PM EDT) SODIUM 140 133 - 146 mmol/L [facility] CHLORIDE 103 96 - 108 mmol/L [facility] POTASSIUM 4.7 3.3 - 5.1 mmol/L [facility] CO2 26 21 - 35 mmol/L [facility] BUN 21(H) 6 - 19 mg/dL [facility] CREATININE 0.70 0.5 - 1.5 mg/dL [facility] GLUCOSE 124(H) 70 - 99 mg/dL [facility] CALCIUM 9.5 8.4 - 10.3 mg/dL [facility] EGFR 89 >59 mL/min/1.7 3m2 [facility] Comment:If patient is black, multiply result by 1.159. Estimated glomerular filtration rate calculated using the CKD-EPI equation. ANION GAP 16 10 - 20 mmol/L [facility] Blood 03/17/2018 3:02 PM EDT 03/17/2018 3:04 PM EDT us Hemant Peter DO LAB BLOOD ORDERABLES Final Resul t [facility] [address] [place] [address] documented in this encounter Visit Diagnoses Diagnosis Hypertension, unspecified type- Primary documented in this encounter Additional Health Concerns Infection Onset Date Last Indicated Resolved Time CoV-Risk 09/07/2023 09/07/2023 09/18/2023 1:21 AM EST documented as of this encounter Care Teams Hydraulic Pile Hammer Operator Relationship Specialty Start Date End Date Hemant Peter DO [email or web address] PCP - General Internal Medicine 06/14/17 documented as of this encounter Additional Source Comments The information contained in this document represents components of the legal health record. It is not the complete legal health record.[facility]
--- OUTSIDE RECORDS SUMMARY | 2025-03-20 12:36 | XMS_ITS | Clinical Summary ---
Author Organization [facility] Address [address] [facility] [address] [place] [address] Phone Care Team Providers Care Python Architect Name Role Phone Hemant Peter Primary Care Provider [phone] Allergies Active Allergy Reactions Criticality Noted Date Comments Insulin Detemir Rash Low 10/21/2016 Sulfamethoxazole-Trimetho prim 03/23/2019 Other Reaction(s): Not available Medications DULoxetine (CYMBALTA) 60 MG capsule Take 60 mg by mouth daily. Active buPROPion (WELLBUTRIN SR) 100 MG SR 12 hr tablet Take 100 mg by mouth daily. Active meclizine (ANTIVERT) 25 mg tablet Take 1 tablet by mouth 3 (three) times a day as needed. Active LORazepam (ATIVAN) 0.5 MG tablet Take 1 tablet by mouth every 6 (six) hours as needed. May use 1/2 tab Active ketoconazole 2 % cream ketoconazole 2 % topical cream APPLY TO THE AFFECTED AREA(S) BY TOPICAL ROUTE ONCE DAILY Active metoprolol succinate (TOPROL-XL) 50 MG 24 hr tablet Take 0.5 tablets (25 mg total) by mouth daily. 03/26/20 Active aspirin 81 MG EC tablet Take 1 tablet (81 mg total) by mouth daily. 30 tablet 03/27/20 Active atorvastatin (LIPITOR) 80 MG tablet Take 1 tablet (80 mg total) by mouth daily. 30 tablet 03/27/20 Active cloNIDine HCl (CATAPRES) 0.1 MG tablet Take 1 tablet (0.1 mg total) by mouth every 12 (twelve) hours. 60 tablet 09/16/20 19 Active clopidogrel (PLAVIX) 75 mg tablet Take 1 tablet (75 mg total) by mouth daily. 20 tablet 03/27/20 Active cyanocobalamin, vitamin B-12, 500 MCG tablet Take 1 tablet (500 mcg total) by mouth daily. 30 tablet 03/27/20 Active lisinopril (PRINIVIL,ZESTRI L) 20 MG tablet Take 1 tablet (20 mg total) by mouth daily. 30 tablet 03/27/20 Active vitamins with ferrous fumarate- folic acid 28 mg iron- 800 mcg Tab Take 1 tablet by mouth daily. 30 tablet 03/26/20 Active thiamine (VITAMIN B-1) 100 mg Tab tablet Take 1 tablet (100 mg total) by mouth daily. 30 tablet 03/26/20 Active Additional Information Patient not taking.Reported on 03/18/2021 amLODIPine (NORVASC) 5 MG tablet Take 1 tablet (5 mg total) by mouth daily. 30 tablet 03/26/20 Active Additional Information Patient taking differently: 10 mgOral Daily, Reported on 06/09/2022 famotidine (PEPCID) 20 MG tablet Take 20 mg by mouth daily. Active glipiZIDE (GLUCOTROL) 10 MG tablet Take 10 mg by mouth daily. Active BLACK COHOSH ORAL Take by mouth. Activ e TRULICITY 1.5 mg/0.5 mL subcutaneous injection INJECT 0.5ML (=1.5 MG) SUBCUTANEOUSLY ONCE WEEKLY Active Active Problems Problem Noted Date Diagnosed Date Cerebrovascular accident (CVA) of thalamus 03/01 Disorder of sacrum 06/28/2022 Sacroiliac joint pain 02/22/2022 Type 2 diabetes mellitus 03/23/2019 Obesity 03/23/2019 Diabetic neuropathy 03/23/2019 Hypertensive encephalopathy 03/22/2019 GERD (gastroesophageal reflux disease) 8 Essential hypertension 12/12/2017 Splenomegaly 12/12/2017 Panic disorder 12/12/2017 Hypercholesterolemia 12/12/2017 Hemorrhoids 12/12/2017 Resolved Problems Problem Noted Date Diagnosed Date Resolved Date History of colon polyps 03/23/201903/11 Encounters Date Type Department Care Team Description 01/07/2025 9:44 AM EDT - 01/07/2025 11:59 PM EDT Hospital Encounter [facility] [address] [place] [address] Hemant Peter, Discharge Disposition: Home or Self Care 06/25/2024 Procedure Pass [facility], [facility] [address] [place] [address] from Last 3 Months Immunizations Immunization Administration Dates Next Due Influenza Quadrivalent w/ Preservative IM 2018,04/20/2018 Influenza, Unspecified Formulation 04/27/2010, Pneumococcal conjugate PCV13 05/11/2016 Pneumococcal polysaccharide PPSV23 03/11/2015 Td, unspecified formulation 11/12/2009 Tdap 03/18/2021,11/12/2009 Zoster unspecified formulation 07/27/2014 Family History Medical History Relation Comments Hypertension Father Hypertension Mother Relation Status Comments Father Mother Social History Tobacco Use Types Packs/Day Years Used Date Smoking Tobacco: Former Smokeless Tobacco: Never Tobacco Cessation:Counseling Given: Not Answered Comments:smoked < 1ppd for 40 years Alcohol Use Standard Drinks/Week Comments No [...] Orientation Straight 01/05/2018 2: 09 PM EDT Last Filed Vital Signs Vital Sign Reading Time Taken Comments Blood Pressure 152/87 09/07/2023 9:53 AM EST Pulse 60 09/07/2023 9:53 AM EST Temperature 37.1 C (98.7 F) 09/07/2023 9:53 AM EST Respiratory Rate 16 09/07/2023 9:53 AM EST Oxygen Saturation 96% 09/07/2023 9:53 AM EST Inhaled Oxygen Concentration 21% 03/23/2019 1 2:15 AM EDT Weight 89.4 kg (197 lb) 09/07/2023 9:53 AM EST p er pt Height 152.4 cm (5') 03/27/2019 12:36 PM EDT Body Mass Index 38.47 03/27/2019 12:36 PM EDT Plan of Treatment Health Maintenance Due Date Last Done Comments DEPRESSION SCREENING 1961 SMOKING Hx and SMOKELESS TOBACCO SCREENING 1962 HEPATITIS C SCREENING 1967 COLOGUARD 1994 COLONOSCOPY 1994 COLORECTAL CANCER SCREENING 1994 FIT TEST 1994 FOBT 1994 SIGMOIDOSCOPY 1994 VIRTUAL COLONOSCOPY 1994 DIABETIC EYE EXAM 03/23/2019 HEMOGLOBIN A1C 09/24/2019 03/26/2019 CREATININE LEVEL 03/24/2020 03/24/2019, , 03/22/2019, Additional history exists POTASSIUM LEVEL 03/24/2020 03/24/2019, 03/11, 03/22/2019, Additional history exists BLOOD PRESSURE 03/07/2024 09/07/2023 RSV VACCINE (1 - 1-dose 75+ series) 2024 INFLUENZA VACCINE (#1) 2025 , 05/19/2022, 05/07/2021, Additional history exists COVID-19 VACCINE ( season) 2025 04/29/2023, 06/19/2021, 10/02/2020, Additional history exists Adult Td,Tdap Booster 03/18/2031 03/18/2021 , 11/12/2009, 11/12/2009 PNEUMOCOCCAL VACCINES (50+ years) Completed 05/11/2016, 05/11/2016, 04/01/2015, Additional history exists OSTEOPOROSIS SCREENING INITIAL (ONE-TIME) Completed 07/15/2020 ZOSTER VACCINES Completed 10/16/2021, 07/11, 07/27/2014 HEPATITIS A VACCINES Aged Out No long er eligible based on patient's age to complete this topic HIB VACCINES Aged Out No longer eligi ble based on patient's age to complete this topic MENINGOCOCCAL VACCINES (ACWY) Aged Out No longer eligible based on patient's age to complete this topic MENINGOCOCCAL VACCINES (B) Aged Out N o longer eligible based on patient's age to complete this topic Medical Devices Not on file Procedures Procedure Name Priority Date/Time Associated Diagnosis Comments BI MAMMOGRAM SCREENING WITH TOMOSYNTHESIS WITH CAD (BILATERAL) Routine 01/07/2025 10:09 AM EDT Encounter for screening mammogram for malignant neoplasm of breast BD DXA AXIAL (SPINE) WITH HIP Routine 07/15/2020 9:55 AM EST Other specified disorders of bone density and structure, unspecified site Osteopenia, unspecified location HEMOGLOBIN A1C Routine 03/26/2019 4:15 AM EDT BASIC METABOLIC PANEL Routine 03/24/2019 5:48 AM EDT from Last 3 Months or Most Recently Relevant to Health Maintenance Results * BI MAMMOGRAM SCREENING WITH TOMOSYNTHESIS [...] Bigda DO IMG MG EXAMS Final Result * BD DXA AXIAL (SPINE) WITH HIP [...] BD BONE DENSITY DEXA Final R esult * Hemoglobin A1c (03/26/2019 4:15 AM EDT) HEMOGLOBIN A1C 5.6 4.3 - 5.8 % [facility] Blood 03/26/2019 4:15 AM EDT 03/26/2019 5:48 AM EDT us Nabila Dawson PA-C, MS LAB BLOOD ORDERAB LES Final Result [facility] [address] [place] [address] * (ABNORMAL) Basic metabolic panel (03/24/2019 5:48 AM EDT) SODIUM 142 133 - 146 mmol/L [facility] CHLORIDE 102 96 - 108 mmol/L [facility] POTASSIUM 4.4 3.3 - 5.1 mmol/L [facility] CO2 30 21 - 35 mmol/L [facility] BUN 19 6 - 19 mg/dL [facility] CREATININE 0.80 0.5 - 1.5 mg/dL [facility] GLUCOSE 156(H) 70 - 99 mg/dL [facility] CALCIUM 9.7 8.4 - 10.3 mg/dL [facility] EGFR 75 >59 mL/min/1.7 3m2 [facility] Comment:If patient is black, multiply result by 1.159. Estimated glomerular filtration rate calculated using the CKD-EPI equation. ANION GAP 14 10 - 20 mmol/L [facility] Blood 03/24/2019 5:48 AM EDT 03/24/2019 5:52 AM EDT us Sammy Selby MD, MS LAB BLOOD ORDERABLES Fin al Result Performing Organization Address City/State/[facility] Co de Phone Number [address] [address] from Last 3 Months or Most Recently Relevant to Health Maintenance Insurance MEDICARE PART A & B [employer] SUPPLEMENT MEDICARE PART A & B [employer] MED[employer] SUPPLEMENT MEDICARE PART A & B [employer] MED[employer] SUPPLEMENT MEDICARE PART A & B [employer] MEDEX SUPPLEMENT MEDICARE PART A & B [employer] MEDEX SUPPLEMENT MEDICARE PART A & B [employer] MEDEX SUPPLEMENT MEDICARE PART A & B [employer] MEDEX SUPPLEMENT MEDICARE PART A & B [employer] MEDEX SUPPLEMENT MEDICARE PART A & B [employer] BETHEL MEDEX SUPPLEMENT Advance Directives For more information, please contact: [phone] (9AM - 5PM [facility], Tuesday-Tuesday) Documents on File Type Date Recorded Patient Commercial Sales Representative Expl anation Healthcare Proxy 03/28/2019 11:12 AM * Full Code (Presumed) (Latest Code Status on File) Date Activated Date Inactivated Comments 03/22/2019 11:07 PM 03/26/2019 8:20 PM Care Teams Python Architect Relationship Specialty Start Date End Date Hemant Peter DO PCP - General Internal Medicine 06/14/17 Additional Source Comments The information contained in this document represents components of the legal health record. It is not the complete legal health record.[facility]
[2025-03-20 14:13] LABS: Hemoglobin A1C 153.2828 umol/L; Total Hemoglobin (HGBA1C) 3216.5053 umol/L
== END 2025-03-20 10:24 | disposition home or self-care (01) ==
LOC: HO.MANLDS 10:23
PROVIDERS: Visit Provider Internal Medicine
DX: E11.9 Type 2 diabetes mellitus without complications (principal)
CPT/HCPCS: 36415; 83036

== ENCOUNTER 2025-06-10 09:37 | Outpatient (REF) | payer MEDICARE, SELFPAY ==
--- OUTSIDE RECORDS SUMMARY | 2025-06-10 11:37 | XMS_ITS | Encounter Summary ---
Author Organization [facility] Address [address] [facility] [address] [place] [address] Phone Care Team Providers Care Terrazzo Installer Name Role Phone Hemant Peter DO Primary Care Provider [phone] Encounter Details Date Type Department Care Team (Late st Contact Info) Description 03/18/2021 Procedure Pass [facility], Ct Scan - [address] [address] Social History Tobacco Use Types Packs/Day Years [...] 5:22 AM EDT Stephanie Rice RN * Gordon Suicide Severity Rating Scale (Screener/Recent Self-Report) Question Answer Date of Assessment Author 1. Wish to be (Past 1 Month) No 03/18/2021 5:22 AM EDT Rhiannon Justin RN 2. Non-Specific Active Suici chaz Thoughts (Past 1 Month) No 03/18/2021 5:22 AM EDT Chivo Justin RN 6. Suicidal Behavior (Lifetime) No 5:22 AM EDT Stephanie Justin RN documented as of this encounter Plan of Treatment Upcoming Encounters Date Type Department Care Team (Late st Contact Info) Description 09/25/2025 1:15 PM EDT Appointment [facility], Bone Density [facility] [address] [place] [address] Hemant Peter DO [address] [place] [address] [email or web address] documented as of this encounter Visit Diagnoses Not on filedocumented in this encounter Additional Health Concerns Infection Onset Date Last Indicated Resolved Time CoV-Risk 09/07/2023 09/07/2023 09/18/2023 1:21 AM EST documented as of this encounter Care Teams Terrazzo Installer Relationship Specialty Start Date End Date Hemant Peter DO [email or web address] PCP - General Internal Medicine 06/14/17 documented as of this encounter Additional Source Comments The information contained in this document represents components of the legal health record. It is not the complete legal health record.[facility]
--- OUTSIDE RECORDS SUMMARY | 2025-06-10 11:37 | XMS_ITS | Encounter Summary ---
Author Organization [facility] Address [address] [place] [address] Phone Care Team Providers Care Construction Supervisor Name Role Phone Hemant Peter DO Primary Care Provider [phone] Encounter Details Date Type Department Care Team (Late st Contact Info) Description 03/17/2018 Procedure Pass [facility], Ct Scan - [address] [address] Social History Tobacco Use Types Packs/Day Years [...] Info) Description 09/25/2025 1:15 PM EDT Appointment [facility], Bone Density - [address] [address] Hemant Peter DO [address] [facility] [place] [address] [email or web address] documented as of this encounter Visit Diagnoses Not on filedocumented in this encounter Additional Health Concerns Infection Onset Date Last Indicated Resolved Time CoV-Risk 09/07/2023 09/07/202309/18/2023 1:21 AM EST documented as of this encounter Care Teams Construction Supervisor Relationship Specialty Start Date End Date Hemant Peter DO [email or web address] PCP - General Internal Medicine 06/14/17 documented as of this encounter Additional Source Comments The information contained in this document represents components of the legal health record. It is not the complete legal health record.[facility]
--- OUTSIDE RECORDS SUMMARY | 2025-06-10 11:37 | XMS_ITS | Encounter Summary ---
Author Organization [facility] Address [address] [place] [address] Phone Care Team Providers Care Haul Cane Brakeman Name Role Phone Hemant Peter Primary Care Provider [phone] Encounter Details Date Type Department Care Team (Late st Contact Info) Description 06/25/2024 Procedure Pass [address] [address] Social History Tobacco Use Types Packs/Day Years [...] Info) Description 09/25/2025 1:15 PM EDT Appointment [facility], [address] [place] [address] Hemant Peter DO [address] [facility] [address] [place] [address] , Inc[employer] documented as of this encounter Visit Diagnoses Not on filedocumented in this encounter Care Teams Haul Cane Brakeman Relationship Specialty Start Date End Date Hemant Peter DO [email or web address] PCP - General Internal Medicine 06/14/17 documented as of this encounter Additional Source Comments The information contained in this document represents components of the legal health record. It is not the complete legal health record.[facility]
--- OUTSIDE RECORDS SUMMARY | 2025-06-10 11:37 | XMS_ITS | Encounter Summary ---
Author Organization [facility] Address [address] [facility] [address] [place] [address] Phone Care Team Providers Care Market Sales Manager Name Role Phone Hemant Peter DO Primary Care Provider [phone] Encounter Details Date Type Department Care Team (Late st Contact Info) Description 03/14/2018 Ancillary Orders [facility] Department [address] [place] [address] Hemant Peter DO [address] [place] [address] Breast screening Social History Tobacco Use Types [...] Info) Description 09/25/2025 1:15 PM EDT Appointment [facility], [facility] [address] [place] [address] Hemant Peter DO [address] [place], [place] [id number] documented as of this encounter Results * [...] There are scattered fibroglandular densities. POS - [id number] Narrative 06/16/2018 1:46 PM EST Full-field digital [...] There are scattered fibroglandular densities. POS - [id number] us Hemant A Bigda DO IMG MG EXAMS Final Result documented in this encounter Visit Diagnoses Diagnosis Breast screening Breast screening, unspecified Breast screening Breast screening, unspecified documented in this encounter Additional Health Concerns Infection Onset Date Last Indicated Resolved Time CoV-Risk 09/07/2023 09/07/2023 09/18/2023 1:21 AM EST documented as of this encounter Care Teams Market Sales Manager Relationship Specialty Start Date End Date Hemant PeterDO [email or web address] PCP - General Internal Medicine 06/14/17 documented as of this encounter Additional Source Comments The information contained in this document represents components of the legal health record. It is not the complete legal health record.[facility]
--- OUTSIDE RECORDS SUMMARY | 2025-06-10 11:37 | XMS_ITS | Encounter Summary ---
Author Organization [facility] Address [address] [address] Phone Care Team Providers Care Dispatcher Motor Vehicle Name Role Phone Hemant Peter DO Primary Care Provider [phone] Encounter Details Date Type Department Care Team (Late st Contact Info) Description 03/24/2019 Procedure Pass [facility], [address] [address] Social History Tobacco Use Types Packs/Day Years [...] Info) Description 09/25/2025 1:15 PM EDT Appointment [address] [address] Hemant Peter DO [address] [facility] [place] [facility] [place] [address] [email or web address] documented as of this encounter Visit Diagnoses Not on filedocumented in this encounter Additional Health Concerns Infection Onset Date Last Indicated Resolved Time CoV-Risk 09/07/2023 09/07/2023 09/18/2023 1:21 AM EST documented as of this encounter Care Teams Dispatcher Motor Vehicle Relationship Specialty Start Date End Date JasminaHemant hanna DO Yehuda [email or web address] PCP - General Internal Medicine 06/14/17 documented as of this encounter Additional Source Comments The information contained in this document represents components of the legal health record. It is not the complete legal health record.[facility]
--- OUTSIDE RECORDS SUMMARY | 2025-06-10 11:37 | XMS_ITS | Encounter Summary ---
Author Organization [facility] Address [address] [facility] [address] [place] [address] Phone Care Team Providers Care Captain Waiter/Waitress Name Role Phone Hemant Peter DO Primary Care Provider [phone] Encounter Details Date Type Department Care Team ([facility] st Contact Info) Description 06/25/2024 Transcribe Orders Virtual Department [address] [place] [address] Hemant Peter DO [address] [facility] [place] [address] [email or web address] Encounter for screening mammogram for malignant neoplasm [...] Info) Description 09/25/2025 1:15 PM EDT Appointment [facility], Bone Density - [facility] [address] [place] [address] Hemant Peter, [address] [facility] [place] [address] [email or web address] Scheduled Orders Name Type Priority Associated Diagnoses Orde r Schedule DXA Screening Imaging Routine Screening for osteoporosis Expected: 04/19/2025, Expires: 06/25/2026 documented as of this encounter Results * [...] be notified of the results and recommendations. Hemant Peter DO IMG MG EXAMS Final Result documented in this encounter Visit Diagnoses Diagnosis Encounter for screening mammogram for malignant neoplasm of breast- Primary Screening for osteoporosis Special screening for osteoporosis Encounter for screening mammogram for malignant neoplasm of breast documented in this encounter Care Teams Captain Waiter/Waitress Relationship Specialty Start Date End Date Hemant Peter DO [email or web address] PCP - General Internal Medicine 06/14/17 documented as of this encounter Additional Source Comments The information contained in this document represents components of the legal health record. It is not the complete legal health record.[facility]
--- OUTSIDE RECORDS SUMMARY | 2025-06-10 11:37 | XMS_ITS | Encounter Summary ---
Author Organization [facility] Address [address] [place] [address] Phone Care Team Providers Care Small Business Representative Name Role Phone Hemant Peter Primary Care Provider [phone] Encounter Details Date Type Department Care Team (Late st Contact Info) Description 03/24/2019 Procedure Pass [address] [address] Social History Tobacco Use Types Packs/Day Years [...] documented in this encounter Plan of Treatment Upcoming Encounters Date Type Department Care Team (Late st Contact Info) Description 09/25/2025 1:15 PM EDT Appointment [address] [place] [address] Hemant Peter DO [address] [facility] [place] [address] [email or web address] documented as of this encounter Visit Diagnoses Not on filedocumented in this encounter Additional Health Concerns Infection Onset Date Last Indicated Resolved Time CoV-Risk 09/07/2023 09/07/2023 09/18/2023 1:21 AM EST documented as of this encounter Care Teams Small Business Representative Relationship Specialty Start Date End Date Hemant Peter DO PCP - General Internal Medicine 06/14/17 documented as of this encounter Additional Source Comments The information contained in this document represents components of the legal health record. It is not the complete legal health record.[facility]
--- OUTSIDE RECORDS SUMMARY | 2025-06-10 11:37 | XMS_ITS | Encounter Summary ---
Author Organization [facility] Address [address] [facility] [address] [place] [address] Phone Care Team Providers Care Neuroscientist Name Role Phone Jasminacyndi Hemant Blackman DO Primary Care Provider [phone] Encounter Details Date Type Department Care Team (Late st Contact Info) Description 12/12/2017 Ancillary Orders Virtual Department [address] [place] [address] Hemant Peter DO [address] [place] [address] Pneumonia due to infectious organism, unspecified laterality, [...] Info) Description 09/25/2025 1:15 PM EDT Appointment [facility] [address] [place] [address] Hemant Peter DO [address] [place] [address] documented as of this encounter Results * [...] spondylosis and large habitus. Procedure Note Dionne Romero MD - 12/13/2017 HISTORY: As above. COMPARISON: 07/14/2010. CHEST RADIOGRAPH FINDINGS: 2 views obtained. Heart is normal in size. Stable mildly prominentcentral pulmonary vasculature. Lungs are clear. Stable thoracicspondylosis and large habitus. IMPRESSION: No acute chest disease. POS - [id number] Hemant Peter DO IMG XR CHEST Final [...] documented as of this encounter Care Teams Neuroscientist Relationship Specialty Start Date End Date Hemant Peter DO PCP - General Internal Medicine 06/14/17 documented as of this encounter Additional Source Comments The information contained in this document represents components of the legal health record. It is not the complete legal health record.[facility]
--- OUTSIDE RECORDS SUMMARY | 2025-06-10 11:37 | XMS_ITS | Encounter Summary ---
Author Organization [facility] Address [address] [facility] [address] [place] [address] Phone Care Team Providers Care Anesthesia Attending Name Role Phone Unknown, Unknown Primary Care Provider Hemant Johnson DO Primary Care Provider [phone] Encounter Details Date Type Department Care Team (Late st Contact Info) Description 04/30/2017 Ancillary Orders [address] [address] Hemant Peter DO [address] [facility] [place] [address] [place] Visit for screening mammogram Social History Tobacco [...] Info) Description 09/25/2025 1:15 PM EDT Appointment [facility], [address] [address] Hemant Peter DO [address] [facility] [place] [address] documented as of this encounter Results * [...] are scattered fibroglandular densities. POS - [id number] us Hemant A Brittani DO IMG MG EXAMS Final Result documented in this encounter Visit Diagnoses Diagnosis Visit for screening mammogram Visit for screening mammogram documented in this encounter Additional Health Concerns Infection Onset Date Last Indicated Resolved Time CoV-Risk 09/07/2023 09/07/2023 09/18/2023 1:21 AM EST documented as of this encounter Care Teams Anesthesia Attending Relationship Specialty Start Date End Date Unknown, Unknown, PCP - General 04/30/17 06/13/17 Hemant Peter DO [email or web address] PCP - General Internal Medicine 06/14/17 documented as of this encounter Additional Source Comments The information contained in this document represents components of the legal health record. It is not the complete legal health record.[facility]
--- OUTSIDE RECORDS SUMMARY | 2025-06-10 11:37 | XMS_ITS | Encounter Summary ---
Author Organization [facility] Address [address] [address] Phone Care Team Providers Care Water Attendant Name Role Phone Hemant Peter DO Primary Care Provider [phone] Reason for Referral * MRI/CAT Scan - Closed Specialty Diagnoses / Procedures Referred By Contac t Referred To Contact Radiology Diagnoses Peripheral visual field defect, unspecified laterality Procedures CT Head Hemant Peter DO Phone: tel: fax: [email or web address] Referral ID Status Reason Start Date Expiration Date Visits Re quested Visits Authorized [id number] Closed 03/17/2018 03/17/2019 1 1 Encounter Details Date Type Department Care Team (Late st Contact Info) Description 03/17/2018 Ancillary Orders Virtual Department [address] [place] [address] Hemant Peter DO [address] [facility] [place] [address] [email or web address] Peripheral visual field defect, unspecified laterality Social [...] Info) Description 09/25/2025 1:15 PM EDT Appointment [facility], Bone [facility] [address] [place] [address] Hemant Peter DO [address] [facility] [place] [address] [place] [address] [email or web address] documented as of this encounter Results * [...] documented as of this encounter Care Teams Water Attendant Relationship Specialty Start Date End Date Hemant Peter DO [email or web address] PCP - General Internal Medicine 06/14/17 documented as of this encounter Additional Source Comments The information contained in this document represents components of the legal health record. It is not the complete legal health record.[facility]
--- OUTSIDE RECORDS SUMMARY | 2025-06-10 11:37 | XMS_ITS | Encounter Summary ---
Author Organization [facility] Address [address] [address] Phone Care Team Providers Care Chef Instructor Name Role Phone Hemant Peter DO Primary Care Provider [phone] Encounter Details Date Type Department Care Team (Late st Contact Info) Description 02/22/2022 Procedure Pass [facility], [address] [address] Social History Tobacco Use Types Packs/Day Years [...] Info) Description 09/25/2025 1:15 PM EDT Appointment [facility], [address] [address] Hemant Peter DO [address] [facility] [place] [address] [email or web address] documented as of this encounter Visit Diagnoses Not on filedocumented in this encounter Additional Health Concerns Infection Onset Date Last Indicated Resolved Time CoV-Risk 09/07/2023 09/07/2023 09/18/2023 1:21 AM EST documented as of this encounter Care Teams Chef Instructor Relationship Specialty Start Date End Date Hemant Peter DO [email or web address] PCP - General Internal Medicine 06/14/17 documented as of this encounter Additional Source Comments The information contained in this document represents components of the legal health record. It is not the complete legal health record.[facility]
--- OUTSIDE RECORDS SUMMARY | 2025-06-10 11:37 | XMS_ITS | Clinical Summary ---
Author Organization [facility] Address [address] [facility] [address] [place] [phone] Phone Care Team Providers Care Digital Commentator Name Role Phone Hemant Peter Primary Care Provider Allergies Active Allergy Reactions Criticality Noted Date [...] Resolved Date History of colon polyps 03/23/201903/11 Immunizations Immunization Administration Dates Next Due Influenza [...] 03/27/2019 12:36 PM EDT Plan of Treatment Upcoming Encounters Date Type Department Care Team (Late st Contact Info) Description 09/25/2025 1:15 PM EDT Appointment [facility], Bone Density - Main [address] [address] JasminacyndiHemant DO [address] [facility] [place] [address] [place] [address] [email or web address] Health Maintenance Due Date Last Done Comments DEPRESSION SCREENING 1961 SMOKING Hx and SMOKELESS TOBACCO SCREENING 1962 HEPATITIS C SCREENING 1967 DIABETIC EYE EXAM 03/23/2019 HEMOGLOBIN A1C 09/24/2019 [...] Procedure Name Priority Date/Time Associated Diagnosis Comments BD DXA AXIAL (SPINE) WITH HIP Routine 07/15/2020 9:55 AM EST Other specified disorders of bone density and structure, unspecified site Osteopenia, unspecified location HEMOGLOBIN A1C Routine 03/26/2019 4:15 AM EDT BASIC METABOLIC PANEL (BMP) Routine 03/24/2019 5:48 AM EDT from Last 3 Months or Most Recently Relevant to Health Maintenance Results * BD DXA AXIAL (SPINE) WITH [...] Overall normal bone mineral density. us Hemant A Bigda DO IMG BD BONE DENSITY DEXA Final R esult * Hemoglobin A1c (03/26/2019 4:15 AM EDT) HEMOGLOBIN A1C 5.6 4.3 - 5.8 % [facility] Blood 03/26/2019 4:15 AM EDT 03/26/2019 5:48 AM EDT us Nabila Dawson PA-C, MS LAB BLOOD BKR ORD ERABLES Final Result [facility] [address] [place] [address] * (ABNORMAL) Basic metabolic panel (03/24/2019 5:48 AM EDT) SODIUM 142 133 - 146 mmol/L [facility] CHLORIDE 102 96 - 108 mmol/L [facility] POTASSIUM 4.4 3.3 - 5.1 mmol/L [facility] CO2 30 21 - 35 mmol/L [facility] BUN 19 6 - 19 mg/dL [facility] CREATININE 0.80 0.5 - 1.5 mg/dL [facility] GLUCOSE 156(H) 70 - 99 mg/dL [facility] CALCIUM 9.7 8.4 - 10.3 mg/dL [facility] EGFR 75 >59 mL/min/1.7 3m2 [facility] Comment:If patient is black, multiply result by 1.159. Estimated glomerular filtration rate calculated using the CKD-EPI equation. ANION GAP 14 10 - 20 mmol/L [facility] Blood 03/24/2019 5:48 AM EDT 03/24/2019 5:52 AM EDT us Sammy Selby MD, MS LAB BLOOD BKR ORDERABLES Final Result [facility] [address] [place] [address] from Last 3 Months or Most Recently Relevant to Health Maintenance [place] PART A & [place] [id number] [employer] SUPPLEMENT MEDICARE PART A & B [employer] SUPPLEMENT MEDICARE PART A & B [employer] MEDEX SUPPLEMENT [facility] MEDEX SUPPLEMENT MEDICARE PART A & B [employer] MEDEX SUPPLEMENT MEDICARE PART A & B [employer] SUPPLEMENT MEDICARE PART A & B [employer] SUPPLEMENT MEDICARE PART A & B [employer] MEDEX SUPPLEMENT MEDICARE PART A & B [employer] MEDEX SUPPLEMENT Advance Directives For more information, please contact: [phone] (9AM - 5PM [facility], Tuesday-Tuesday) Documents on File Type Date Recorded Patient Payroll Clerk Expl anation Healthcare Proxy 03/28/2019 11:12 AM * Full Code (Presumed) (Latest Code Status on File) Date Activated Date Inactivated Comments 03/22/2019 11:07 PM 03/26/2019 8:20 PM Care Teams Digital Commentator Relationship Specialty Start Date End Date Hemant Peter DO PCP - General Internal Medicine 06/14/17 Additional Source Comments The information contained in this document represents components of the legal health record. It is not the complete legal health record.[facility]
--- OUTSIDE RECORDS SUMMARY | 2025-06-10 11:37 | XMS_ITS | Encounter Summary ---
Author Organization [facility] Address [address] [facility] [address] [place] [address] Phone Care Team Providers Care Lead Qa Analyst Name Role Phone Hemant Peter DO Primary Care Provider [phone] Encounter Details Date Type Department Care Team (Late Contact Info) Description 06/09/2020 Ancillary Orders Virtual Department [address] [place] [address] Hemant Peter DO [address] [place] [address] [email or web address] Other specified disorders of bone density and [...] Encounters Date Type Department Care Team (Late Contact Info) Description 09/25/2025 1:15 PM EDT Appointment [facility], Bone Density - [facility] [address] [place] [address] Hemant Peter DO [address] [place] [address] [email or web address] documented as of this encounter Results * [...] documented as of this encounter Care Teams Lead Qa Analyst Relationship Specialty Start Date End Date Hemant Peter DO [email or web address] PCP - General Internal Medicine 06/14/17 documented as of this encounter Additional Source Comments The information contained in this document represents components of the legal health record. It is not the complete legal health record.[facility]
--- OUTSIDE RECORDS SUMMARY | 2025-06-10 11:37 | XMS_ITS | Continuity of Care Document ---
Author Organization [place] - [facility], [facility] Address [address] [place] [address] Assessment Encounter Date Assessment Date Assessment LastModified by Organization Details LastModified Time 04/03/2025 04/03/2025 [id number] [place] [id number] (HAD[employer] SOFTWARE ENGINEER) MDM MODERATE MUST MEET 2 OUT OF 3 ELEMENTS: PROBLEMS, DATA OR RISK ELEMENT 1: PROBLEMS ADDRESSED 1 OR MORE CHRONIC ILLNESS WITH EXACERBATION OR 2 OR MORE STABLE CHRONIC ILLNESSES OR 1 UNDIAGNOSED NEW PROBLEM OR 1 ACUTE ILLNESS W/SYMPTOMS OR 1 ACUTE COMPLICATED INJURY ELEMENT 2: DATA MUST MEET 1 OF 3 CATEGORIES CATEGORY 1: REVIEW OF PRIOR EXTERNAL NOTES, REVIEW OF RESULTS, ORDERING OF EACH TEST, ASSESSMENT REQUIRING INDEPENDENT HISTORIAN OR CATEGORY 2: INDEPENDENT INTERPRETATION OF TESTS BY ANOTHER PHYSICIAN OR SPECIALIST OR CATEGORY 3: DISCUSSION OF MGT OR TEST INTERPRETATION W/EXTERNAL PHYSICIAN OR SPECIALIST ELEMENT 3: RISK RISK OF COMPLICATIONS AND/OR MORBIDITY OR MORTALITY OF PATIENT MANAGEMENT PROVIDER MUST THOROUGHLY DOCUMENT EACH ELEMENT THAT IS COVERED Not available 04/03/2025 10:46:15 Plan of Treatment Reminders Order Date Submit Date Provider Last Modified By Organization Details Last Modified Time Details Appointments FOLLOW UP 15 2025 11:15A M DR SANTANA Not available Not available Not available Lab CMP, serum or plasma 2024 025 [facility], [address] [place] [address], [place], [address], 04/03/2025 10:49:28 CBC 2024 025 [facility], [address] [place] [address], [address], 04/03/2025 10:49:29 lipid panel, blood 2024 025 [facility], [address] [place] [address], [place], [address], 04/03/2025 10:49:29 vitamin D, 25-hydro xy, total, serum 2024 025 [facility], [address] [facility], [place], [address], 04/03/2025 10:49:28 Referral None recorded . Procedures None recorded . Surgeries None recorded . Imaging None recorded . Medication Orders None recorded . Patient TargetsNo targets recorded. Patient Instructions Encounter Date Encounter Id Patient Instructions Last Modified By Organization Details Last Modified Time 04/03/2025 [id number] dizziness: care instructions Not available 04/03/2025 10:50:24 Reason for Referral None Reported. Results Created Date Observation Date Name Description Value Unit Range Abnormal Flag Note LastModifiedBy Organization Detail LastModifiedTime Result Notes None recorded. 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 Not Available [facility] 2 12:05:38 Panic disorder 686332437 Active 2017 Not Available [facility] 2 12:05:38 Acid reflux 421411491 Active 2017 Not Available [facility] 2 12:05:38 Impaired fasting glycemia 070804185 Completed 201702/27/2020 Hemant Santana DO [address] [place] [address], [address], [facility] 0 14:53:49 Thalamic infarcti on 995942029 Active 2018 Not Available [facility] 2 12:05:38 Type 2 diabetes mellitus 49252952 Active 2019 Hemant Santana, [address] [place] [address], [address], [facility] 5 10:45:21 Lumbosac ral radiculi tis 51619964 Active 2021 Hemant Santana DO [address] [place] [address], [address], [facility] 2 16:05:19 Pain of sacroili ac joint 069642428 Active 2021 Hemant Satnana DO [address] [place] [address], [address], [facility] 2 16:05:29 Acute urinary tract infectio n 886130396 Active 2021 Hemant Santana DO [address] [place] [address], [address], [facility] 2 10:54:39 COVID-19 111887235 Active 2022 Hemant Santana DO [address] [place] [address], [address], [facility] 3 14:51:15 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 80443497 Active 2022 Hemant Santana DO [address] [place] [address], [address], [facility] 3 14:24:38 Cough 88694006 Active 2022 Hemant Santana DO [address] [place] [address], [address], [facility] 3 14:10:02 Sacral back pain 37071944 Active 2022 Hemant YehudaVanita Santana DO [address] [place] [address], [address], [facility] 3 14:13:46 Type 2 diabetes mellitus without complica tion 882007709 Active 2023 Hemant YehudaVanita Santana DO [address] [place] [address], [address], [facility] 5 11:09:56 Cerebrov ascular accident 624879904 Active 2023 Hemant Santana DO [address] [place] [address], [address], [facility] 4 14:31:17 Osteoart hritis of finger joint of right hand 9514802100 5041314 Active 2024 Hemant Santana DO [address] [place] [address], [address], [facility] 5 10:50:37 Dizzines s 753456990 Active 2024 Hemant Santana DO [address] [place] [address], [address], [facility] 5 10:49:45 Problem Notes None recorded. Procedures Surgical History Date Name Laterality Status Provider Name and Address Organization Details Recorded Time 09/19/19 16 Colonoscopy completed Hemant Santana DO [address] [place] [address], [phone], [facility] 03/14/2018 15:12:08 Imaging Results None recorded. Procedure Notes None recorded. Medical Equipment None Reported. Allergies Allergen ID Allergen Name Allergen Category Reaction Reaction Severity Criticality Documentation Date Start Date Code Code System Note Provider Name and Address Organization Details Recorded Time 1522 Bactrim medicatio n Not available Not available Not available 12/12/2017 29037 9 [facility] 8 08:43:39 Medications Name Sig Start Date Stop Date Status Note LastModified by Organization Details LastModified Time amoxicillin 500 mg capsule 06/15 completed Not Available Not Available Not Available atorvastati n 80 mg tablet TAKE 1 TABLET DAILY active Not Available Not Available No t Available clonidine HCl 0.1 mg tablet TAKE 1 TABLET TWICE A DAY active Not Available Not Available No t Available oxybutynin chloride ER 10 mg tablet,exte nded release 24 hr TAKE 1 TABLET EVERY DAY BY ORAL ROUTE FOR 30 DAYS. 03/09 completed Not Available Not Available Not Available azithromyci n 250 mg tablet TAKE 2 TABLETS BY MOUTH TODAY, THEN TAKE 1 TABLET DAILY FOR 4 DAYS DIRECTED 12/18 completed Not Available Not Available Not Available metoprolol succinate ER 50 mg tablet,exte nded release 24 hr TAKE 1 TABLET DAILY 2024 active Not Available Not Available Not Avai lable glipizide ER 10 mg tablet, extended release 24 hr 1 po qd 03/23 completed Not Available Not Available Not Available lisinopril 20 mg tablet TAKE 1 TABLET ONCE DAILY 2024 active Not Available Not Available Not Avai lable sertraline 100 mg tablet Take 1 tablet every day by oral route. 01/04 completed Not Available Not Available Not Available Diflucan 150 mg tablet Take 1 tablet by oral route as directed for 1 day. 10/21 completed Not Available Not Available Not Available thiamine HCl (vitamin B1) 100 mg tablet Take 1 tablet every day by oral route. 06/15 completed Not Available Not Available Not Available clopidogrel 75 mg tablet TAKE 1 TABLET ONCE DAILY 2024 active Not Available Not Available Not Avai lable ciprofloxac in 250 mg tablet TAKE 1 TABLET BY MOUTH TWICE A DAY FOR 5 DAYS 08/02 completed Not Available Not Available Not Available amlodipine 5 mg tablet Take 1 tablet every day by oral route. 04/24 completed Not Available Not Available Not Available oxycodone-a cetaminophe n 5 mg-325 mg tablet TAKE 1 TABLET EVERY 6 HOURS BY ORAL ROUTE NEEDED FOR 7 DAYS. 12/23 completed Not Available Not Available Not Available bupropion HCl 100 mg tablet TAKE 1 TABLET ONCE DAILY active Not Available Not Available No t Available lorazepam 0.5 mg tablet TAKE 1/2 TO 1 TABLET EVERY 6 TO 8 HOURS NEEDED 05/18 completed Not Available Not Available Not Available meclizine 25 mg tablet TAKE 1 TABLET BY MOUTH THREE TIMES A DAY NEEDED FOR 7 DAYS 06/15 completed Not Available Not Available Not Available amlodipine 10 mg tablet TAKE 1 TABLET ONCE DAILY active Not Available Not Available No t Available benzonatate 100 mg capsule TAKE 1 CAPSULE BY MOUTH 3 TIMES A DAY NEEDED. 06/25 completed Not Available Not Available Not Available omeprazole 20 mg capsule,del ayed release TAKE 1 CAPSULE TWICE DAILY 06/15 completed Not Available Not Available Not Available Aspir-81 mg tablet,shoaib yed release Take 1 tablet every day by oral route. active Not Available Not Available No t Available Pepcid 20 mg tablet Take 1 tablet every day by oral route. active Not Available Not Available No t Available methylpredn isolone 4 mg tablets in a dose pack TAKE 6 TABLETS ON DAY 1 DIRECTED ON PACKAGE AND DECREASE BY 1 TAB EACH DAY FOR A TOTAL OF 6 DAYS 12/18 completed Not Available Not Available Not Available ketoconazol e 2 % topical cream APPLY TO THE AFFECTED AREA(S) BY TOPICAL ROUTE ONCE DAILY 05/18 completed Not Available Not Available Not Available oxycodone 5 mg tablet TAKE 1 TABLET BY MOUTH THREE TIMES A DAY NEEDED FOR 7 DAYS 08/15 completed Not Available Not Available Not Available nitrofurant oin monohydrate /macrocryst als 100 mg capsule TAKE 1 CAPSULE BY MOUTH EVERY 12 HOURS FOR 7 DAYS 08/02 completed Not Available Not Available Not Available duloxetine 60 mg capsule,del ayed release TAKE 1 CAPSULE DAILY 2024 active Not Available Not Available Not Avai lable active Not Available Not Avai lable Not Available black cohosh active Not Available Not Available Not Available B12 500mg daily active Not Available Not Available No t Available Prolensa 0.07 % eye drops INSTILL 1 DROP INTO LEFT EYE ONCE A DAY AT BREAKFAST TO START 2 DAYS BEFORE SURGERY 12/18 completed Not Available Not Available Not Available Trulicity 1.5 mg/0.5 mL subcutaneou s pen injector INJECT 0.5 ML SUBCUTANE OUSLY WEEKLY active Not Available Not Available No t Available Trulicity 0.75 mg/0.5 mL subcutaneou s pen injector inject 0.5ml once a week 02/22 completed Not Available Not Available Not Available Fluzone High-Dose Quad (PF) 240 mcg/0.7 mL IM syringe PHARMACY ADMINISTE RED 06/09 completed Not Available Not Available Not Available Paxlovid 300 mg (150 mg x 2)-100 mg tablets in a dose pack PLEASE SEE ATTACHED FOR DETAILED DIRECTION S 09/03 completed Not Available Not Available Not Available Vitals Date Recorded Body height Body mass index (BMI) Body weight Oxygen saturation Heart rate Systolic And Diastolic Provider Name and Address Organization Details Last Updated DateTime 5 154.94 cm 36.8 kg/m2 89509.5 1 g 94 % 60 /min 136/72 mm[Hg] CAROLE AYOUB [facility] 5 10:19:37 Social History Question Answer Notes LastModified by Organizat ion Details LastModified Time Tobacco Smoking Status Former Smoker Not Available [facility] 05/13/2020 03:36:24 What Was The Date Of Your Most Recent Tobacco Screening? 04/03/2025 [email or web address] Information not available 04/03/2025 Sex: Unknown Functional Status Question Answer Note LastModified by Organization D etails LastModified Time Do you or have you ever used any other forms of tobacco or nicotine? No [email or web address] Information not available 11/26/2022 Mental Status None recorded. Family History Nothing Reported. Medical History No medical history recorded. Gynecological HistoryNo gynecological history recorded. Obstetrics History GPAL:G 0 P 0 0 0 0 Immunizations Vaccine Type Date Status Note Provider Nam e and Address Organization Details Recorded Time Influenza, split virus, quadrivalent, preservative 05/07/20 21 completed Paige saab [facility] 09/14/2021 13:40:52 COVID-19, mRNA, LNP-S, PF, 100 mcg/0.5mL dose or 50 mcg/0.25mL dose 06/19/20 21 completed Paige saab [facility] 09/14/2021 13:40:28 Tdap 03/18/20 21 jeronimo saab [facility] 09/14/2021 13:40:37 zoster recombinant 07/29/19 22 completed Paige saab [facility] 09/14/2021 13:41:31 zoster, unspecified formulation 10/17/19 22 completed Hemant Santana, [address] [place], [address], [facility] 10/17/2021 15:10:52 Influenza, split virus, quadrivalent, preservative 04/20/20 18 completed Hemant Santana, DO [address] [place], [address], [facility] 04/21/2018 08:32:15 influenza, unspecified formulation 05/19/20 22 [facility]22 14:28:44 Influenza, split virus, quadrivalent, preservative 03/20/20 19 [facility] 03/21/2019 08:22:51 Influenza, split virus, quadrivalent, preservative 04/02/20 20 [facility] 06/09/2020 10:01:48 Tdap 11/13/19 10 completed Paige saab [facility] 03/17/2018 10:16:06 zoster, unspecified formulation 07/27/19 15 [facility] 03/17/2018 10:16:41 pneumococcal polysaccharide PPV23 03/11/20 15 jeronimo saab [facility] 03/17/2018 10:17:11 Pneumococcal conjugate PCV 13 05/11/20 16 [facility] 03/17/2018 10:17:28 COVID-19, mRNA, LNP-S, PF, 100 mcg/0.5mL dose or 50 mcg/0.25mL dose 09/04/19 21 completed Dea saab [facility] 12/19/2020 11:34:13 COVID-19, mRNA, LNP-S, PF, 100 mcg/0.5mL dose or 50 mcg/0.25mL dose 10/03/19 21 completed Dea saab [facility] 12/19/2020 11:34:18 Past Encounters Encounter ID Performer Location Encounter Start Date Encounter Closed Date Diagnosis/Indication Diagnosis SNOMED-CT Code Diagnosis ICD10 Code Diagnosis IMO Codes Diagnosis Note [id number] DO [facility] [address],[place] [address] 04/03/2025 10:10:33 04/03/2025 12:02:36 Depression screening 613957272 Z13.31 SCREENING NEGATIVE Essential hypertension 65624721 I10 Is well controlled currently bps at home running 130's Type 2 sung betes mellitus 82838496 E11.9 continues to drop wgt her last a1c is 6.5!!!!was 6.1 lab done today !!!!doing great no changes PRIOR: she is now down to 6.0 6.6 wwas 7.0 was 6.8 7.2 with trulicity but must watch dietwe will increase trulicity to 1.5we will check a1c next 3 month she is getting lab work as indicated i will give her more paper lab orders 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 8615014532 7114122 M19.041 [id number] still struggling but not interested in seeing hand dr Dizziness 695209210 R42 63382 will try holding amlodipine and they will call me next week if not helpful will resume and try holding lisinopril etc Health Concerns Section Related Observation LastModified by Organization Detai ls LastModified Time None Recorded Concern Status LastModified by Organization Details LastModified Time None Recorded Payers Encounter Date Sequence Insurance Name Policy Number Policy Galo Covered Member ID Galo Member ID Guarantor Name 04/03/2025 1 [place] [employer] Manda Talavera [id number] Izabella Talavera 04/03/2025 2 [place] [id number] Manda Talavera [id number] Izabella Talavera Notes Date Note Type Note Provider Name and Address Organization Details Recorded Time 5 text/htm l Care Management - HypertensionReported by PatientHPIFor self care, patient reportsnot under emotional stress. For severity, patient reportssymptoms are improvinganddoes not interfere with daily activities. For associated symptoms, patient reportsno dizziness,no lightheadedness,no chest pain,no shortness of breath,no palpitations,no edema,no calf muscle cramps,no blurred vision,no confusion,no headaches, andno fatigue. Care Management - DiabetesReported by PatientHPIFor self care, patient reportsseeing eye doctor yearly for dilated eye exam,checking feet regularly,normal range of home blood sugars (in the low 100s), andno side effects from medications. For associated symptoms, patient reportssymptoms are usually well controlled,no fatigue,no dizziness,no excessive sweating,no headaches,no confusion,no increased thirst,no increased appetite,no increased urination,no blurred vision,no numbness of feet, andno calluses on feet.has been having issues with looking to the right and returning head to center gets dizzy other times it happens when at restROS as noted in the HPI Hemant Santana, DO [address] [facility], [place], [address], [facility] 04/03/2025 13:31:08 OBGyn Episode No OBEpisode recorded.
--- OUTSIDE RECORDS SUMMARY | 2025-06-10 11:37 | XMS_ITS | Encounter Summary ---
Author Organization [facility] Address [address] [facility] [address] [place] [address] Phone Care Team Providers Care Ophthalmic Photographer Name Role Phone Hemant Peter DO Primary Care Provider [phone] Encounter Details Date Type Department Care Team (Late st Contact Info) Description 06/09/2020 Transcribe Orders Virtual Department [address] [place] [address] Hemant Peter DO [address] [place] [address] [email or web address] Left-sided low back pain with left-sided sciatica, [...] Info) Description 09/25/2025 1:15 PM EDT Appointment [facility] [address] [place] [address] Hemant Peter DO [address] [place] [address] [email or web address] documented as of this encounter Results * [...] large stone left renal pelvis. us Hemant Peter DO IMG XR SPINE Final Result documented in this encounter Visit Diagnoses Diagnosis Left-sided low back pain with left-sided sciatica, unspecified chronicity- Primary Left-sided low back pain with left-sided sciatica, unspecified chronicity documented in this encounter Additional Health Concerns Infection Onset Date Last Indicated Resolved Time CoV-Risk 09/07/2023 09/07/2023 09/18/2023 1:21 AM EST documented as of this encounter Care Teams Ophthalmic Photographer Relationship Specialty Start Date End Date Hemant Peter DO [email or web address] PCP - General Internal Medicine 06/14/17 documented as of this encounter Additional Source Comments The information contained in this document represents components of the legal health record. It is not the complete legal health record.[facility]
--- OUTSIDE RECORDS SUMMARY | 2025-06-10 11:37 | XMS_ITS | Encounter Summary ---
Author Organization [facility] Address [address] [address] Phone Care Team Providers Care Template Cutter Name Role Phone Hemant Peter DO Primary Care Provider [phone] Encounter Details Date Type Department Care Team (Late st Contact Info) Description 03/24/2019 Procedure Pass [facility], [address] [address] Social History Tobacco Use Types Packs/Day Years [...] Info) Description 09/25/2025 1:15 PM EDT Appointment [address] [address] eHmant Peter DO [address] [facility] [place] [address] [email or web address] documented as of this encounter Visit Diagnoses Not on filedocumented in this encounter Additional Health Concerns Infection Onset Date Last Indicated Resolved Time CoV-Risk 09/07/2023 09/07/2023 09/18/2023 1:21 AM EST documented as of this encounter Care Teams Template Cutter Relationship Specialty Start Date End Date JasminaHemant hanna DO Yehuda [email or web address] PCP - General Internal Medicine 06/14/17 documented as of this encounter Additional Source Comments The information contained in this document represents components of the legal health record. It is not the complete legal health record.[facility]
--- OUTSIDE RECORDS SUMMARY | 2025-06-10 11:37 | XMS_ITS | Data Portability ---
Author Organization [facility], Telehealth Patient Home Address [address] [place] [address] Assessment Encounter Date Assessment Date Assessment LastModified by Organization Details LastModified Time 03/23/2024 03/23/2024 [id number] [place] [id number] (PROGRAMMING MANAGER) MDM MODERATE MUST MEET 2 OUT OF [...] EACH ELEMENT THAT IS COVERED Not available 03/23/2024 15:00:06 06/25/2024 06/25/2024 Patient presente d to office today for their Medicare Annual Wellness Visit. Education was provided on healthy nutrition, including a diet rich in fruits and vegetables, minimizing simple carbohydrates, salt, and saturated fats. Encouraged regular cardiovascular exercise such as walking at least 30 minutes daily, 5 times per week. Emphasized preventive health measures and educated pt on fall prevention and community-based lifestyle interventions to help reduce health risks and promote healthy living. Not available 06/25/2024 08:42:26 10/01/2024 10/01/2024 [id number] [place] [id number] (PROGRAMMING MANAGER) MDM MODERATE MUST MEET 2 OUT OF [...] EACH ELEMENT THAT IS COVERED Not available 10/01/2024 13:40:37 01/02/2025 01/02/2025 [id number] [place] [id number] (PROGRAMMING MANAGER) MDM MODERATE MUST MEET 2 OUT OF [...] EACH ELEMENT THAT IS COVERED Not available 01/02/2025 10:49:25 04/03/2025 04/03/2025 [id number] [place] [id number] (PROGRAMMING MANAGER) MDM MODERATE MUST MEET 2 OUT OF [...] Last Modified Time Details Appointments FOLLOW UP 2025 11:15A M DR SANTANA Not available Not available Not available Lab CMP, serum or plasma 2024 025 [facility], [address] [place] [address], [id number], 04/03/2025 10:49:28 CBC 2024 025 [facility], [address] [place] [address], [id number], 04/03/2025 10:49:29 lipid panel, blood 2024 025 [facility], [address] [place] [address], [id number], 04/03/2025 10:49:29 vitamin D, 25-hydrox y, total, serum 2024 025 [facility], [address] [place] [address], [id number], 04/03/2025 10:49:28 hemoglobi n A1c, QN, blood 2024 025 [facility], [address] [place] [address], [id number], 01/02/2025 11:04:13 lipid panel, blood 2024 025 [facility], [address] [place] [address], [id number], 10/01/2024 14:01:00 CMP, serum or plasma 2024 025 [facility], [address] [place] [address], [id number], 10/01/2024 14:01:00 CBC 2024 025 [facility], [address] [place] [address], [id number], 10/01/2024 14:01:00 lipid panel, blood 2023 024 [facility], [address] [place] [address], [id number], 06/25/2024 15:16:15 CMP, serum or plasma 2023 024 [facility], [address] [place] [address], [id number], 06/25/2024 15:16:15 HbA1c (hemoglob in A1c), blood 2023 024 [facility], [address] [place] [address], [id number], 09/27/2024 12:56:35 HbA1c (hemoglob in A1c), blood 2024 025 [facility], [address] [place] [address], [id number], 01/03/2025 13:24:42 HbA1c (hemoglob in A1c), blood 2024 025 [facility], [address] [place] [address], [id number], 03/21/2025 12:27:26 HbA1c (hemoglob in A1c), blood 2024 025 [facility], [address] [place] [address], [id number], 03/21/2025 12:27:26 hemoglobi n, gastroint estinal, stool 2023 024 [facility], [address] [place] [address], [id number], 06/25/2024 15:16:15 Referral None recorded. Procedures None recorded. Surgeries None recorded. Imaging MAMMO, screening , digital, bilateral 2023 024 [facility], [address] [place], [id number], 07/13/2024 09:00:13 bone density 2023 024 [facility], [address] [place], [address], 07/13/2024 09:00:13 Medication Orders None recorded. Patient TargetsNo targets recorded. Patient Instructions Encounter Date Encounter Id Patient Instructions Last Modified By Organization Details Last Modified Time 06/25/2024 [id number] advance care planning: care instructions Not available 06/25/2024 15:14:41 type 2 diabetes: care instructions Not available 06/25/2024 15:14:41 high blood pressure: care instructions Not available 06/25/2024 15:14:41 learning about high blood pressure Not available 06/25/2024 15:14:41 Discussed and explained advance directives such as standard forms to the . Face to face discussion lasted for a duration of ___ minutes. Not available 06/25/2024 08:42:26 04/03/2025 [id number] dizziness: care instructions [email or web address] Not available 04/03/2025 10:50:24 Reason for Referral None Reported. Results Created Date Observation Date Name Description Value Unit Range Abnormal Flag Note LastModifiedBy Organization Detail LastModifiedTime 01/09/20 25 01/07/2025 MAMMO , scree peter, digit al, bilat eral No observ ation record ed. [facility] - Callback Orders Only [address] [place], [address], 01/08/2025 14:57:08 Result Notes None recorded. 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 Not Available [facility] 2 12:05:38 Panic disorder 954646527 Active 2017 Not Available [facility] 2 12:05:38 Acid reflux 398485841 Active 2017 Not Available [facility] 2 12:05:38 Impaired fasting glycemia 857752543 Completed 201702/27/2020 Hemant Santana DO [address] [place] [address], [address], [facility] 0 14:53:49 Thalamic infarcti on 176621776 Active 2018 Not Available [facility] 2 12:05:38 Type 2 diabetes mellitus 37057725 Active 2019 Hemant Santana DO [address] [place] [address], [address], [facility] 5 10:45:21 Lumbosac ral radiculi tis 72482278 Active 2021 Hemant Santana DO [address] [place] [address], [address], [facility] 2 16:05:19 Pain of sacroili ac joint 795893347 Active 2021 Hemant Santana DO [address] [place] [address], [address], [facility] 2 16:05:29 Acute urinary tract infectio n 962697595 Active 2021 Hemant Santana DO [address] [place] [address], [address], [facility] 2 10:54:39 COVID-19 481008888 Active 2022 Hemant Santana, DO [address] [place] [address], [address], [facility] 3 14:51:15 Cerebrov ascular accident of thalamus 7504420698 85627482 Active 2022 Hemant Santana DO [address] [place] [address], [address], [facility] 3 14:24:38 Cough 31556403 Active 2022 Hemant Santana, DO [address] [place] [address], [address], [facility] 3 14:10:02 Sacral back pain 26880082 Active 2022 Hemant Santana DO [address] [place] [address], [address], [facility] 3 14:13:46 Type 2 diabetes mellitus without complica tion 144941006 Active 2023 Hemant Santana, [address] [place] [address], [address], [facility] 5 11:09:56 Cerebrov ascular accident 008834893 Active 2023 Hemant Santana DO [address] [place] [address], [address], [facility] 4 14:31:17 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 Procedures Surgical History Date Name Laterality Status Provider Name and Address Organization Details Recorded Time 09/19/19 16 Colonoscopy completed Hemant Santana, DO [address] [facility], [place], [address], [facility] 03/14/2018 15:12:08 Imaging Results None recorded. Procedure Notes None recorded. Medical Equipment None Reported. Allergies Allergen ID Allergen Name Allergen Category Reaction Reaction Severity Criticality Documentation Date Start Date Code Code System Note Provider Name and Address Organization Details Recorded Time 152 Bactrim medicatio n Not available Not available Not available 12/12/2017 78750 9 RxNorm [facility] 8 08:43:39 Medications Name Sig Start Date [...] height Body mass index (BMI) Body weight Heart rate Oxygen saturation Systolic And Diastolic Provider Name and Address Organization Details Last Updated DateTime 5 154.94 cm 36.3 kg/m2 86220.7 4 g 62 /min 98 % 146/90 mm[Hg] Morena Aviles [facility] 5 13:31:59 Date Recorded Body height Body mass index (BMI) Body weight Heart rate Oxygen saturation Systolic And Diastolic Provider Name and Address Organization Details Last Updated DateTime 5 154.94 cm 36.3 kg/m2 81137.7 4 g 66 /min 98 % 108/68 mm[Hg] Kiara Guy [facility] 5 10:30:41 Date Recorded Body height Body mass index (BMI) Body weight Heart rate Oxygen saturation Systolic And Diastolic Provider Name and Address Organization Details Last Updated DateTime 4 153.04 cm 37.6 kg/m2 96165.9 2 g 57 /min 97 % 140/78 mm[Hg] Kiara Brooks [facility] 4 14:42:41 Date Recorded Body height Body mass index (BMI) Body weight Oxygen saturation Heart rate Systolic And Diastolic Provider Name and Address Organization Details Last Updated DateTime 5 154.94 cm 36.8 kg/m2 10091.5 1 g 94 % 60 /min 136/72 mm[Hg] CAROLE VINSONHUMERA [facility] 5 10:19:37 Date Recorded Body height Body mass index (BMI) Body weight Heart rate Oxygen saturation Systolic And Diastolic Provider Name and Address Organization Details Last Updated DateTime 4 154.94 cm 37.4 kg/m2 48507.2 9 g 55 /min 98 % 142/82 mm[Hg] Fredo Bonnieville [facility] 4 14:51:27 Social History Question Answer Notes LastModified by Organizat ion Details LastModified Time Tobacco Smoking Status Former Smoker Not Available [facility] 05/13/2020 03:36:24 What Was The Date Of Your Most Recent Tobacco Screening? 04/03/2025 [email or web address] Information not available 04/03/2025 Sex: Unknown Functional Status Question Answer Note LastModified by Organization D etails LastModified Time Do you or have you ever used any other forms of tobacco or nicotine? No Information not available 11/26/2022 Mental Status None recorded. Family History Nothing Reported. Medical History No medical history recorded. Gynecological HistoryNo gynecological history recorded. Obstetrics History GPAL:G 0 P 0 0 0 0 Immunizations Vaccine Type Date Status Note Provider Nam e and Address Organization Details Recorded Time Influenza, split virus, quadrivalent, preservative 05/07/20 21 completed Paige saab [facility] 09/14/2021 13:40:52 COVID-19, mRNA, LNP-S, PF, 100 mcg/0.5mL dose or 50 mcg/0.25mL dose 06/19/20 21 jeronimo saab [facility] 09/14/2021 13:40:28 Tdap 03/18/20 21 [facility] 13:40:37 zoster recombinant 07/29/19 22 [facility] 09/14/2021 13:41:31 zoster, unspecified formulation 10/17/19 22 completed Hemant Santana, DO [address] [place], [address], [facility] 10/17/2021 15:10:52 Influenza, split virus, quadrivalent, preservative 04/20/20 18 completed Hemant Santana, DO [address] [place], [address], [facility] 04/21/2018 08:32:15 influenza, unspecified formulation 05/19/20 22 [facility] 09/03/2022 14:28:44 Influenza, split virus, quadrivalent, preservative 03/20/20 19 completed Dea Lund [facility] 03/21/2019 08:22:51 Influenza, split virus, quadrivalent, preservative 04/02/20 20 completed Paige Castaneda [facility] 06/09/2020 10:01:48 Tdap 11/13/19 10 completed [facility] 03/17/2018 10:16:06 zoster, unspecified formulation 07/27/19 15 completed [facility] 03/17/2018 10:16:41 pneumococcal polysaccharide PPV23 03/11/20 15 [facility] 03/17/2018 10:17:11 Pneumococcal conjugate PCV 13 05/11/20 16 [facility] 03/17/2018 10:17:28 COVID-19, mRNA, LNP-S, PF, 100 mcg/0.5mL dose or 50 mcg/0.25mL dose 09/04/19 21 [facility] 12/19/2020 11:34:13 COVID-19, mRNA, LNP-S, PF, 100 mcg/0.5mL dose or 50 mcg/0.25mL dose 10/03/19 21 completed Dea saab [facility] 12/19/2020 11:34:18 Past Encounters Encounter ID Performer Location Encounter Start Date Encounter Closed Date Diagnosis/Indication Diagnosis SNOMED-CT Code Diagnosis ICD10 Code Diagnosis IMO Codes Diagnosis Note [id number] Hemant Santana [facility] [address] [facility] [address],[place] [address] [facility] [address] 12/12/2017 10:39:41 12/12/2017 16:26:32 Panic disorder 311859227 F41.0 will change her sertrtalin e to duloxetine Essential hypertension 43321242 I10 going to k bp with reg sphyg not electronic Pneumonia 735724038 J18. 9 will need f/u cxr [id number] Hemant Santana [facility] [address] [facility] [address] [address] 01/04/2018 16:08:38 01/04/2018 16:51:05 Essential hypertension 21974497 I10 elevated today, likely 2/2 illness/pa in/headach e Acid reflux 941956719 K2 1.9 continue omeprazole Nausea and vomiting 1693 2000 R11.2 likely viral gastroente ritis PUSH FLUIDS, BLAND DIET gradual diet progressio n as improved if dehydratio n worsens go to ED - pt understood Jaw pain 684979404 R68.8 4 likely combinatio n of injury and jaw clenching Headache 82074733 R51 again multifacto rial due to injury, jaw clenching and now with n/v - dehydratio n push fluids take tylenol as nsaids may further upset stomach [id number] Hemant Santana DO [facility] [address] [facility] [address] [address] 03/17/2018 09:57:57 03/17/2018 11:02:08 Essential hypertension 99734883 I10 bp stable doing well Peripheral visual field defect 50986494 H53.40 poss TIA vs migraine will need to have a ct scan as well and `rechk due to acute episode of visual fioeld deficit and right upper lip numbness with resolution Impaired f asting glycemia 617391914 R73.01 a1c [id number] Hemant Freedmancyndi [facility] [address] [facility] [address] [address] 2019 15:56:26 2019 16:39:53 Thalamic infarction 431251011 I63.81 will need to get into therapy for speech etc Essential hypertension 07193950 I10 bp stable doing well and is running a bit higher than norm but this is ok ans we will follow in the next 10 days [id number] Hemant BlackmanVanita Santana [facility] [address] [facility] [address] [address] 04/13/2019 12:07:34 04/13/2019 12:49:19 Essential hypertension 60916246 I10 bp stable doing well and is running a bit higher than norm but this is ok ans we will follow in the next 10 days Thalamic infarction 4272 13981 I63.81 will need to get into therapy for speech etc long discussion re re wiring brain and need for aggressive mental exercises [id number] Hemant Neil Brittani [facility] [address] [facility] [address] [address] 05/18/2019 15:35:21 05/18/2019 16:12:19 Thalamic infarction 442753908 I63.81 will need to get into therapy for speech etc long discussion re re wiring brain and need for aggressive mental exercises Impaired f asting glycemia 307574320 R73.01 a1c pending Essential hypertension 75754705 I10 bp stable doing well and is running a bit higher than norm but this is ok ans we will follow in the next 10 days [id number] Hemant Santana [facility] [address] [facility] [address] [address] 05/25/2019 13:51:49 05/25/2019 14:14:17 Essential hypertension 48292028 I10 bp stable doing well and is running a bit higher than norm but this is ok ans we will follow in the next 10 days [id number] Hemant Santana [facility] [address] [facility] [address] [address] 07/23/2019 10:21:44 07/23/2019 10:59:05 Hepatitis C screening 828683389 Z11.59 Will check Thalamic infarction 4272 56573 I63.81 will need to get into therapy for speech etc long discussion re re wiring brain and need for aggressive mental exercises Is doing very well and has completed rehab Essential hypertension 24785801 I10 bp stable doing well and is running a bit higher than norm but this is ok and we will follow in the next 10 days Is well controlled Hypercholesterolemia 136 27045 E78.00 Will check Impaired f asting glycemia 108391197 R73.01 Will recheck [id number] Hemant Santana [facility] [address] [facility] [address] [address] 08/15/2019 11:23:13 08/15/2019 11:48:32 Benign paroxysmal positional vertigo 580255789 H81.12 +nystagmus , will do brain MRI non-urgent ly Encouraged drinking more fluids If lasts longer than 10 minutes take meclizine OTC Essential hypertension 65762822 I10 Is well controlled currently DIzziness doesn't seem to be associated with hypotensio n [id number] Hemant Santana [facility] [address] [facility] [address] [address] 10/22/2019 10:10:18 10/22/2019 10:33:50 Essential hypertension 86791198 I10 Is well controlled currently DIzziness doesn't seem to be associated with hypotensio n Impaired f asting glycemia 207600656 R73.01 Will recheck a1c has not beenchecke d in quite a while Hypercholesterolemia 136 45710 E78.00 Will check lab this time Thalamic infarction 4272 94271 I63.81 continues to do quite well states her memory has retyrned and is almost back to baseline joselin distant memory ambulates well no weakness or instabilit y [id number] Hemant Santana [facility] [address] [facility] [address] [address] 02/27/2020 14:22:05 02/27/2020 15:19:11 Essential hypertension 40268989 I10 Is well controlled currently DIzziness doesn't seem to be associated with hypotensio n Thalamic infarction 4272 77620 I63.81 continues to do quite well states her memory has retyrned and is almost back to baseline joselin distant memory ambulates well no weakness or instabilit y Impaired f asting glycemia 166675594 R73.01 Will recheck a1c has not beenchecke d in quite a while Type 2 sung betes mellitus 11864604 E11.9 new dx and she has climbed up to 6. so she is still safe but must watch diet Hypercholesterolemia 136 21722 E78.00 LDL 63 [id number] Hemant Santana DO [facility] [address] [facility],[place] [address] 06/09/2020 09:57:38 06/09/2020 10:45:49 Type 2 diabetes mellitus 35890684 E11.9 new dx and she has climbed up to 6. so she is still safe but must watch diet we will check a1c now Essential hypertension 95275124 I10 Is well controlled currently DIzziness doesn't seem to be associated with hypotensio n Hepatitis C screening 41 9645037 Z11.59 Will check Osteopenia 624748886 M85 .80 Thalamic infarction 4272 83950 I63.81 continues to do quite well states her memory has retyrned and is almost back to baseline joselin distant memory ambulates well no weakness or instabilit y Vertigo 010414822 R42 appears to be a benign form and unrelated to her cva will use meclizine for now and ss how she does Hypercholesterolemia 136 27492 E78.00 LDL 63 Lumbago with sciatica 20 9985294 M54.42 has pain radiating down her left thigh to her knee very sore throbbing pain always present less intense at times but debilitati ng when at its worse [id number] Hemant Santana, [facility] [address] [facility],[place] [address] 08/15/2020 13:32:59 08/15/2020 15:41:43 Essential hypertension 02156383 I10 Is well controlled currently bps at home running 130-140's systol DIzziness doesn't seem to be associated with hypotensio n but overall is much better states has def improved Type 2 sung betes mellitus 99258288 E11.9 new dx and she has climbed up to 6. 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 so she is still safe but must watch diet we will check a1c next month she has not been getting lab work as indicated i will give her more paper lab orders Hypercholesterolemia 136 89707 E78.00 LDL 63 Essential hypertension 95945972 I10 Is well controlled currently bps at home running 130-140's systol DIzziness doesn't seem to be associated with hypotensio n but overall is much better states has def improved Thalamic infarction 4272 26591 I63.81 continues to do quite well states her memory has returned and is almost back to baseline joselin distant memory ambulates well no weakness or instabilit y Hepatitis C screening 41 7216975 Z11.59 Will check [id number] Hemant Neil Brittani [facility] [address] [facility] [address] [address] 01/02/2021 14:42:40 01/02/2021 15:19:56 Type 2 diabetes mellitus 21754256 E11.9 dx and she has climbed up to 8.4. so she is still safe but must watch diet we will check a1c next month she has not been getting lab work as indicated i will give her more paper lab orders Intertrigo of abdominal skin fold 646097045 L30.4 will have her try clotrim and dev creams Urinary incontinence 165 347909 R32 [id number] Hemant Neil Brittani [facility] [address] [facility] [address] [address] 03/09/2021 14:53:02 03/09/2021 15:35:47 Type 2 diabetes mellitus 54383011 E11.9 now she is at a1c 7.5 but she had climbed up to 8.4. so she is still safe but must watch diet we will check a1c next 3 month she has not been getting lab work as indicated i will give her more paper lab orders Essential hypertension 28228223 I10 Is well controlled currently bps at home running 130-140's systol but has not checked at home much DIzziness doesn't seem to be associated with hypotensio n but overall is much better states has def improved Acid reflux 330551515 K2 1.9 asymptomat ic Thalamic infarction 4272 28529 I63.81 continues to do quite well states her memory has returned and is almost back to baseline joselin distant memory ambulates [place] [id number] Hemant Santana [facility] [address] [facility],[place] [address] 06/15/2021 10:40:13 06/15/2021 12:43:15 Type 2 diabetes mellitus 04426526 E11.9 she is now 8.4 last february she was at a1c 7.5 but she had climbed up to 8.4.in the spring so she is still safe but must watch diet we will check a1c next 3 month she is getting lab work as indicated i will give her more paper lab orders Essential hypertension [id number] I10 Is well controlled currently bps at home running 130-140's systol but has not checked at home much DIzziness doesn't seem to be associated with hypotensio n but overall is much better states has def improved Thalamic infarction 4272 15657 I63.81 continues to do quite well states her memory has returned and is almost back to baseline joselin distant memory ambulates [place] [id number] [facility] [address] [facility],[place] [address] 09/14/2021 11:18:03 09/14/2021 15:12:46 Type 2 diabetes mellitus 10641735 E11.9 she is now 7.2 with trulicity7 .5 and was 8.4 in may last february she was at a1c 7.5 but she had climbed up to 8.4.in the spring so she is still safe but must watch dietwe will increase trulicity to 1.5we will check a1c next 3 month she is getting lab work as indicated i will give her more paper lab orders Essential hypertension 18032779 I10 Is well controlled currently bps at home running 140's-150 systol but has not checked at home muchso will increase to full tablet of metoprolol 50has had occ dizziness at timesDIzzi ness doesn't seem to be associated with hypotensio n but overall is much better states has def improved Thalamic infarction 4272 57138 I63.81 continues to do quite well states her memory has returned and is almost back to baseline joselin distant memory ambulates [place] [id number] Hemant Santana [facility] Internal Medicine [address] [facility],[place] [address] 02/22/2022 15:29:04 02/22/2022 16:26:17 Type 2 diabetes mellitus 01359381 E11.9 she is now 7.2 with trulicity7 .5 and was 8.4 in nov last february she was at a1c 7.5 but she had climbed up to 8.4.in the spring so she is still safe but must watch dietwe will increase trulicity to 1.5we will check a1c next 3 month she is getting lab work as indicated i will give her more paper lab orders Essential hypertension 46254628 I10 Is well controlled currently bps at home running 140's-150 systol but has not checked at home muchso will increase to full tablet of metoprolol 50has had occ dizziness at timesDIzzi ness doesn't seem to be associated with hypotensio n but overall is much better states has def improved Hypercholesterolemia 136 41275 E78.00 LDL 63 Thalamic infarction 4272 23855 I63.81 continues to do quite well states her memory has returned and is almost back to baseline joselin distant memory ambulates well no weakness or instabilit y Pain of sa croiliac joint 492890448 M53.3 Screening mammography 24 423919 Z12.31 [id number] Hemant Santana, [facility] Internal Medicine [address] [facility],[place] [address] 02/26/2022 11:11:28 02/26/2022 12:04:53 Acute urinary tract infection 878981021 N39.0 [id number] Hemant Santana [facility] Internal [facility] [address] [facility],[place] [address] 09/03/2022 14:06:57 09/03/2022 16:07:27 Type 2 diabetes mellitus 31784154 E11.9 she is now7.0 was 6.8 7.2 with trulicity but must watch dietwe will increase trulicity to 1.5we will check a1c next 3 month she is getting lab work as indicated i will give her more paper lab orders Essential hypertension 69562342 I10 Is well controlled currently bps at home running 140's-150 systol but has not checked at home muchso will increase to full tablet of metoprolol 50has had occ dizziness at timesDIzzi ness doesn't seem to be associated with hypotensio n but overall is much better states has def improved Thalamic infarction 4272 51448 I63.81 continues to do quite well states her memory has returned and is almost back to baseline joselin distant memory ambulates well [place] [id number] Hemant Santana [facility] Internal Medicine [address] [facility],[place] [address] 11/26/2022 13:31:14 11/26/2022 14:14:21 Essential hypertension 76721586 I10 Is well controlled currently bps at home running 140's-150 systol but has not checked at home muchso will increase to full tablet of metoprolol 50has had occ dizziness at timesDIzzi ness doesn't seem to be associated with hypotensio n but overall is much better states has def improved Thalamic infarction 4272 21785 I63.81 continues to do quite well states her memory has returned and is almost back to baseline joselin distant memory ambulates well no weakness or instabilit y Type 2 sung betes mellitus 58235371 E11.9 she is now down to 6.6 wwas 7.0 was 6.8 7.2 with trulicity but must watch dietwe will increase trulicity to 1.5we will check a1c next 3 month she is getting lab work as indicated i will give her more paper lab orders Pain of sa croiliac joint 415624671 M53.3 state not having much discomfort no major complaints [id number] Hemant Santana [facility] Internal Medicine [address] [facility],[place] [address] 03/01/2023 13:54:56 03/01/2023 14:38:07 Essential hypertension 77146319 I10 Is well controlled currently bps at home running 140's Hypercholesterolemia 136 30718 E78.00 LDL 63 Cerebrovas cular accident of thalamus 1382246960 81920506 I63.89 stable an d no further issues thus far meds will be continued Pre-surger y evaluation 917035450 Z01.818 Per the 2017 ACC guidelines (revised) this patient is cleared for the proposed catatract surgery on ODpt understand s to take her usual medication s on the morning of her surgery.If needed, she is cleared to hold her clopidogre l for 3 days prior to surgery . [id number] Hemant Santana DO [facility] Internal [facility] [address] [facility],[place] [address] 05/31/2023 08:17:55 05/31/2023 14:18:36 Type 2 diabetes mellitus 88455407 E11.9 she is now down to 6.6 wwas 7.0 was 6.8 7.2 with trulicity but must watch dietwe will increase trulicity to 1.5we will check a1c next 3 month she is getting lab work as indicated i will give her more paper lab orders Hypercholesterolemia 136 09770 E78.00 LDL 63 Essential hypertension 54632474 I10 Is well controlled currently bps at home running 140's Cough 16642947 R05.9 came back ill from a cruise Sacral back pain 4829792 3 M54.50 will refer back to [address] calhoun did well with last inj [id number] Hemant Santana DO [facility] Internal Medicine [address] [facility],[place] [address] 09/05/2023 08:31:29 09/05/2023 16:37:56 Type 2 diabetes mellitus without complication 368049180 E11.9 a1c is 6.0 lost another 4lbs Cerebrovas cular accident 180087970 I63.89 stable and no issues Essential hypertension 48751670 I10 Is well controlled currently bps at home running 140's Hypercholesterolemia 136 94919 E78.00 LDL 63 [id number] Hemant Santana DO [facility] Internal [facility] [address] [facility],[place] [address] 12/19/2023 13:22:42 12/20/2023 11:52:08 Type 2 diabetes mellitus 02326657 E11.9 continues to drop wgt her last a1c was 6 lab done today PRIOR: she is now down to 6.6 wwas 7.0 was 6.8 7.2 with trulicity but must watch dietwe will increase trulicity to 1.5we will check a1c next 3 month she is getting lab work as indicated i will give her more paper lab orders Essential hypertension 77602105 I10 Is well controlled currently bps at home running 140's Hypercholesterolemia 136 11629 E78.00 LDL 63 Depression screening 171 466928 Z13.31 SCREENING NEGATIVE Cerebrovas cular accident of thalamus 6625314332 18396030 I63.89 stable an d no further issues thus far meds will be continued Pain of sa croiliac joint 172044231 M53.3 state not having much discomfort no major complaints [id number] Hemant Santana DO [facility] [address] [facility],[place] [address] 03/23/2024 14:36:46 03/23/2024 15:12:17 Essential hypertension 39050120 I10 Is well controlled currently bps at home running 140's Hypercholesterolemia 136 81906 E78.00 LDL 63 Type 2 sung betes mellitus without complication 104901405 E11.9 a1c is 6.0 lost another 5 we will hold the glipizide and see how she doescont the trulicity [id number] Hemnat Santana DO [facility] Internal [facility] [address] [facility],[place] [address] 06/25/2024 14:43:04 06/25/2024 15:18:40 Adult health examination 214302898 Z00.00 loretta get fbw , doing well overall Screening for cardiovascular system disease 324609495 Z13.6 Screening for malignant neoplasm of colon 648850661 Z12.11 Screening for osteoporosis 620181336 Z13.820 Screening mammography 24 821501 Z12.31 Essential hypertension 21614412 I10 Is well controlled currently bps at home running 140's Hypercholesterolemia 136 31700 E78.00 LDL 63 Type 2 sung betes mellitus without complication 968013971 E11.9 a1c is 6.4 now off glipizide and doiong well [id number] Hemant Santana, [facility] [address] [facility],[place] [address] 10/01/2024 13:21:19 10/01/2024 14:36:17 Type 2 diabetes mellitus 38037123 E11.9 continues to drop wgt her last a1c was 6.1 lab done today !!!!doing great no changes PRIOR: she is now down to 6.0 6.6 wwas 7.0 was 6.8 7.2 with trulicity but must watch dietwe will increase trulicity to 1.5we will check a1c next 3 month she is getting lab work as indicated i will give her more paper lab orders Essential hypertension 01608147 I10 Is well controlled currently bps at home running 140's Hypercholesterolemia 136 60666 E78.00 LDL 63 Depression screening 171 729345 Z13.31 SCREENING NEGATIVE Cerebrovas cular accident of thalamus 5638836809 07652614 I63.89 stable an d no further issues thus far meds will be continued [id number] Hemant Santana, [facility] [address] [facility],[place] [address] 01/02/2025 10:15:48 01/02/2025 11:15:46 Type 2 diabetes mellitus 19383793 E11.9 continues to drop wgt her last a1c was 6.1 lab done today !!!!doing great no changes PRIOR: she is now down to 6.0 6.6 wwas 7.0 was 6.8 7.2 with trulicity but must watch dietwe will increase trulicity to 1.5we will check a1c next 3 month she is getting lab work as indicated i will give her more paper lab orders Essential hypertension 61894912 I10 Is well controlled currently bps at home running 140's Hypercholesterolemia 136 90216 E78.00 LDL 63 Depression screening 171 056956 Z13.31 SCREENING NEGATIVE 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 1224564004 2607792 M19.041 [id number] will try diclofenac [id number] Hemant Santana [facility] Internal Medicine [address] [facility] [address],[place] [address] 04/03/2025 10:10:33 04/03/2025 12:02:36 Depression screening 582380089 Z13.31 SCREENING NEGATIVE Essential hypertension 21579030 I10 Is well controlled currently bps at home running 130's Type 2 sung betes mellitus 99156009 E11.9 continues to drop wgt her last [...] itis of finger joint of right hand 2101027607 3493799 M19.041 [id number] still struggling but not interested in seeing hand dr Miguel [id number] R42 [id number] will try holding amlodipine and they will call me next week if not helpful will resume and try holding lisinopril etc Health Concerns Section Related Observation LastModified by Organization Detai ls LastModified Time None Recorded Concern Status LastModified by Organization Details LastModified Time None Recorded Advance Directives Directive None Recorded Payers Insurance Date Sequence Insurance Name Policy Number Policy Galo Covered Member ID Galo Member ID Guarantor Name 03/31/2025 1 [place] [employer] Manda Talavera [id number] Izabella Talavera 04/01/2025 2 [place] [id number] Manda Talavera [id number] Izabella Talavera Notes Date Note Type Note Provider Name and Address Organization Details Recorded Time 03/23/20 24 text/htm l Care Management - DiabetesReported by PatientHPIFor self care, patient reportsseeing eye doctor yearly for dilated eye exam,checking feet regularly,normal range of home blood sugars (in the low 100s), andno side effects from medications. For associated symptoms, patient reportssymptoms are usually well controlled,no fatigue,no dizziness,no excessive sweating,no headaches,no confusion,no increased thirst,no increased appetite,no increased urination,no blurred vision,no numbness of feet, andno calluses on feet.ROS as noted in the HPI here for rechkhad an episode of low sugar after skipping meals and this occurs after the trulicity shot the day beforefelt better after eating Hemant YehudaVanita Santana, DO [address] [facility], [place], [address], [facility] 03/23/2024 15:00:57 06/25/20 24 text/htm l Medicare Annual Wellness VisitReported by PatientSocial/Behavioral HistoryFor diet and nutrition, patient reportshealthy diet. For fracture risk, patient reportsno history of fractures,no recent explained fracture,no sudden unexplained fractures, andno previous musculoskeletal injuries. For physical activity, patient reportsexercises on a regular basis,recent increase in physical activity, andgood physical condition.Mental Status:For depression risk, patient reportsnever feels sad, empty, or tearful,no loss of interest in activities,no significant changes in weight,no sleep disturbances or insomnia,no agitation,no loss of energy,no feelings of worthlessness or guilt,no thoughts of suicide,no history of depression, andno history of mood disorders. For orientation, patient reportsno disorientation to time,no disorientation to date, andno disorientation to place. For concentration and memory, patient reportsno decreased concentrating ability,no memory lapses or loss, anddoes not forget words. For speech/motor difficulties, patient reportsno speech difficulties,no difficulty expressing formulated concepts,no difficulty with fine manipulative tasks,no difficulty writing/copying,no slowed reaction time, anddoes not knock things over when trying to pick them up.Functional AbilityFor hearing, patient reportsno loss of hearing. For vision, patient reportsno vision problems. For activities of daily living, patient reportsable to bathe with limited or no assistance,able to contol urination and bowels,able to dress with limited or no assistance,able to feed self with limited or no assistance,able to get out of chair or bed with limited or no assistance,able to groom with limited or no assistance, andable to toilet with limited or no assistance. For instrumental activities of daily living, patient reportsable to do house work with limited or no assistance,able to grocery shop with limited or no assistance,able to manage medications with limited or no assistance,able to manage money with limited or no assistance,able to prepare meals with limited or no assistance, andable to use the phone with limited or no assistance. For falls risk assessment, patient reportsno frequent falls while walking,no fall in the past year,no fall since last visit, andno dizziness/vertigo. For home safety, patient reportsno unsafe jose hazzards,no unsafe stairs,no unsafe gas appliances,working smoke/co detectors,wears protective head gear for biking/high velocity,use of seatbelts,practicing 'safer sex',no vision or hearing loss while driving,no fire arms,has hand bars in the bathroom/shower, andgood lighting in the home.ROS as noted in the HPI Hemant Santana DO [address] [facility], [place], [address], [facility] 06/25/2024 15:17:40 10/02/19 25 text/htm l Care Management - HypertensionReported by [...] vision,no numbness of feet, andno calluses on feet. Care Management - HyperlipidemiaReported by PatientIFor control, patient reportsusually well controlled,improving, andat goal. For complications, patient reportsno coronary artery disease,no heart attack,no cardiovascular disease,no pancreatitis, andno stroke.ROS as noted in the HPI here for rechk and is feeling well no major issuesno cp no sob states is worried about Hemant Santana DO [address] [place], [address], [facility] 10/01/2024 13:42:17 01/03/20 text/htm l Care Management - HypertensionReported by PatientIFor self care, patient reportsnot under emotional stress. [...] vision,no numbness of feet, andno calluses on feet. here fo r rechk and is doing ok relates that she is feeling well except for the right ring finger which has been painful and it gets stuck and snaps which is painful this is the hand which she uses for scissors to cut hair Hemant Santana, DO [address] [place], [address], [facility] 01/02/2025 10:54:46 04/03/20 text/htm l Care Management - HypertensionReported by PatientBRIGH[facility]ITALor self care, patient reportsnot under emotional stress. [...] noted in the HPI Hemant Santana, DO [address] [place] [address], [place], [address], [facility] 04/03/2025 13:31:08 OBGyn Episode No OBEpisode recorded.
--- OUTSIDE RECORDS SUMMARY | 2025-06-10 11:37 | XMS_ITS | Encounter Summary ---
Author Organization [facility] Address [address] [place] [address] Phone Care Team Providers Care Coffee Farmer Name Role Phone Hemant Peter DO Primary Care Provider [phone] Encounter Details Date Type Department Care Team (Late st Contact Info) Description 03/17/2018 Transcribe Orders [address] [address] Hemant Peter DO [address] [facility] [place] [address] [email or web address] Hypertension, unspecified type (Primary Dx) Social History [...] 2:09 PM EDT Sexual Orientation Straight 01/05/2018 2 :09 PM EDT documented as of this encounter Plan of Treatment Upcoming Encounters Date Type Department Care Team (Late Contact Info) Description 09/25/2025 1:15 PM EDT Appointment [facility] [address] [place] [address] Hemant Peter DO [address] [facility] [place] [address] [email or web address] documented as of this encounter Results * (ABNORMAL) Basic metabolic panel (03/17/2018 3:02 PM EDT) SODIUM 140 133 - 146 mmol/L [facility] CHLORIDE 103 96 - 108 mmol/L [facility] POTASSIUM 4.7 3.3 - 5.1 mmol/L [facility] CO2 26 21 - 35 mmol/L [facility] BUN 21(H) 6 - 19 mg/dL [facility] CREATININE 0.70 0.5 - 1.5 mg/dL [facility] GLUCOSE 124(H) 70 - 99 mg/dL [facility] CALCIUM 9.5 8.4 - 10.3 mg/dL [facility] EGFR 89 >59 mL/min/1.7 3m2 [facility] Comment:If patient is black, multiply result by 1.159. Estimated glomerular filtration rate calculated using the CKD-EPI equation. ANION GAP 16 10 - 20 mmol/L [facility] Blood 03/17/2018 3:02 PM EDT 03/17/2018 3:04 PM EDT us Hemant Peter DO LAB BLOOD BKR ORDERABLES Final R esult [address] [address] documented in this encounter Visit Diagnoses Diagnosis Hypertension, unspecified type- Primary documented in this encounter Additional Health Concerns Infection Onset Date Last Indicated Resolved Time CoV-Risk 09/07/2023 09/07/2023 09/18/2023 1:21 AM EST documented as of this encounter Care Teams Coffee Farmer Relationship Specialty Start Date End Date Hemant Peter DO PCP - General Internal Medicine 06/14/17 documented as of this encounter Additional Source Comments The information contained in this document represents components of the legal health record. It is not the complete legal health record.[facility]
[2025-06-10 13:17] LABS: MANUAL DIFF FLAG NO
[2025-06-10 13:40] LABS: Hematocrit 37.3 % (37.0-47.0); Hemoglobin 12.4 g/dl (12.0-16.0); Imm Gran Abs Auto 0.03 X10*3/uL (0.00-0.03); Imm Gran Pct Auto 0.4 % (0.0-0.4); Lymphocytes Absolute Auto 1.4 X10*3/uL (1.2-4.9); Mean Corpuscular HGB Conc 33.2 g/dl (31.0-35.0); Mean Corpuscular Hemoglobin 28.1 pg (27.0-33.0); Mean Corpuscular Volume 84.4 fL (80.0-98.0); NRBC Abs Auto 0.000 X10*3/uL (0.0-0.012); NRBC Pct Auto 0.0 /100WBC (0.0-0.2); Platelet Count 180 X10*3/uL (160-400); Red Blood Count 4.42 X10*6/uL (4.20-5.50); White Blood Count 8.4 X10*3/uL (4.8-10.8)
[2025-06-10 13:51] LABS: Alanine Aminotransferase 26 U/L (0-31); Albumin Level 3.7 g/dL (3.5-5.0); Alkaline Phosphatase 163 U/L (39-117); Anion Gap 9 (12-20); Aspartate Amino Transferase 30 U/L (5-31); Blood Urea Nitrogen 25 mg/dL (9-16); Calcium 8.9 mg/dL (8.4-10.2); Carbon Dioxide 26 mmol/L (22-29); Chloride 109 mmol/L (96-108); Cholesterol 153 mg/dL (<200); Estimated Glomerular Filt Rate 49; HDL Cholesterol 47 mg/dL (>40); Potassium 4.4 mmol/L (3.3-5.1); Sodium 140 mmol/L (135-145); Total Protein 6.2 g/dL (6.5-8.0); Triglycerides 212 mg/dL (<150)
== END 2025-06-10 09:38 | disposition home or self-care (01) ==
LOC: HO.MANLDS 09:37
PROVIDERS: Visit Provider Internal Medicine
DX: E11.9 Type 2 diabetes mellitus without complications (principal)
CPT/HCPCS: 36415; 80053; 80061; 83036; 85025

== ENCOUNTER 2025-06-11 10:11 | Outpatient (REF) | payer MEDICARE, SELFPAY ==
--- OUTSIDE RECORDS SUMMARY | 2025-06-11 11:38 | XMS_ITS | Data Portability ---
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 Not available 06/25/2024 08:42:26 10/01/2024 10/01/2024 [id number] [place] [address] (CHANNEL SALES DIRECTOR) MDM MODERATE MUST MEET 2 OUT OF [...] COVERED Not available 10/01/2024 13:40:37 01/02/2025 01/02/2025 [id number] [place] [address] (CHANNEL SALES DIRECTOR) MDM MODERATE MUST MEET 2 OUT OF [...] COVERED Not available 01/02/2025 10:49:25 04/03/2025 04/03/2025 [id number] [place] [address] (CHANNEL SALES DIRECTOR) MDM MODERATE MUST MEET 2 OUT OF [...] Lab CMP, serum or plasma 2024 [id number] [facility], [address] [place] [address], [id number], 04/03/2025 10:49:28 CBC 2024 025 [facility], [address] [place] [address], [id number], 04/03/2025 10:49:29 lipid panel, blood 2024 025 [facility], [address] [place] [address], [id number], 04/03/2025 10:49:29 vitamin D, 25-hydrox y, total, serum 2024 025 [facility], [address] [place] [address], 116[address], 04/03/2025 10:49:28 hemoglobi n A1c, QN, blood 2024 025 [facility], [address] [place] [address], [address], 01/02/2025 11:04:13 lipid panel, blood 2024 025 [facility], [address] [place] [address], 65[address], 10/01/2024 14:01:00 CMP, serum or plasma 2024 025 [facility], [address] [place] [address], [id number], 10/01/2024 14:01:00 CBC 2024 025 [facility], [address] [place] [address], [id number], 10/01/2024 14:01:00 lipid panel, blood 2023 024 [facility], [address] [place] [address], [id number], 06/25/2024 15:16:15 CMP, serum or plasma 2023 024 [facility], [address] [place] [address], [id number], 06/25/2024 15:16:15 HbA1c (hemoglob in A1c), blood 2023 024 [facility], [address] [place] [address], [address], 09/27/2024 12:56:35 HbA1c (hemoglob in A1c), blood 2024 025 [facility], [address] [place] [address], [id number], 01/03/2025 13:24:42 HbA1c (hemoglob in A1c), blood 2024 025 [facility], [address] [place] [address], 29[address], 03/21/2025 12:27:26 HbA1c (hemoglob in A1c), blood 2024 025 [facility], [address] [place] [address], 24[address], 03/21/2025 12:27:26 hemoglobi n, gastroint estinal, stool 2023 024 [facility], [address] [place] [address], [id number], 06/25/2024 15:16:15 Referral None recorded. Procedures None recorded. Surgeries None recorded. Imaging MAMMO, screening , digital, bilateral 2023 024 [facility], [address] [place], [address], 07/13/2024 09:00:13 bone density 2023 024 [facility], [address] [place], [address], 07/13/2024 09:00:13 Medication Orders None recorded. Patient TargetsNo targets recorded. Patient Instructions Encounter Date Encounter Id Patient Instructions Last Modified By Organization Details Last Modified Time 06/25/2024 [id number] advance care planning: care instructions Not available [...] ___ minutes. Not available 06/25/2024 08:42:26 04/03/2025 [id number] dizziness: care instructions [email or web address] Not available 04/03/2025 10:50:24 Reason for Referral None Reported. Results Created Date Observation Date Name Description Value Unit Range Abnormal Flag Note LastModifiedBy Organization Detail LastModifiedTime 01/09/20 25 01/07/2025 MAMMO , scree peter, digit al, bilat eral No observ ation record ed. [facility] - Callback Orders Only [address] [place], [address], 01/08/2025 14:57:08 Result Notes None recorded. 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 Active 2017 Not Available [facility] 2 12:05:38 Panic disorder 893673327 Active 2017 Not Available [facility] 2 12:05:38 Acid reflux 419714041 Active 2017 Not Available [facility] 2 12:05:38 Impaired fasting glycemia 179626249 Completed 201702/27/2020 Hemant Santana DO [address] [place] [address], [address], [facility] 0 14:53:49 Thalamic infarcti on 773828513 Active 2018 Not Available [facility] 2 12:05:38 Type 2 diabetes mellitus 09225248 Active 2019 Hemant Santana DO [address] [place] [address], [address], [facility] 5 10:45:21 Lumbosac ral radiculi tis 84419702 Active 2021 Hemant Santana DO [address] [place] [address], [address], [facility] 2 16:05:19 Pain of sacroili ac joint 041868205 Active 2021 Hemant Santana DO [address] [place] [address], [address], [facility] 2 16:05:29 Acute urinary tract infectio n 603694343 Active 2021 Hemant Santana DO [address] [place] [address], [address], [facility] 2 10:54:39 COVID-19 807584763 Active 2022 Hemant Santana, DO [address] [place] [address], [address], [facility] 3 14:51:15 Cerebrov ascular accident of thalamus 5873551841 64621896 Active 2022 Hemant Santana DO [address] [place] [address], [address], [facility] 3 14:24:38 Cough 80316189 Active 2022 Hemant Santana, DO [address] [place] [address], [address], [facility] 3 14:10:02 Sacral back pain 40730288 Active 2022 Hemant Santana DO [address] [place] [address], [address], [facility] 3 14:13:46 Type 2 diabetes mellitus without complica tion 038357030 Active 2023 Hemant Santana, [address] [place] [address], [address], [facility] 5 11:09:56 Cerebrov ascular accident 423761511 Active 2023 Hemant Santana DO [address] [place] [address], [address], [facility] 4 14:31:17 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 Procedures Surgical History Date Name Laterality Status Provider Name and Address Organization Details Recorded Time 09/19/19 16 Colonoscopy completed Hemant Santana, DO [address] [facility], [place], [address], [facility] 03/14/2018 15:12:08 Imaging Results None recorded. Procedure Notes None recorded. Medical Equipment None Reported. Allergies Allergen ID Allergen Name Allergen Category Reaction Reaction Severity Criticality Documentation Date Start Date Code Code System Note Provider Name and Address Organization Details Recorded Time 152 Bactrim medicatio n Not available Not available Not available 12/12/2017 60354 9 RxNorm Ana [facility] 8 08:43:39 Medications Name Sig [...] Updated DateTime 5 154.94 cm 36.3 kg/m2 82111.7 4 g 62 /min 98 % 146/90 mm[Hg] Morena Aviles [facility] 5 13:31:59 Date Recorded Body height Body mass index (BMI) Body weight Heart rate Oxygen saturation Systolic And Diastolic Provider Name and Address Organization Details Last Updated DateTime 5 154.94 cm 36.3 kg/m2 59499.7 4 g 66 /min 98 % 108/68 mm[Hg] Kiara Guy [facility] 5 10:30:41 Date Recorded Body height Body mass index (BMI) Body weight Heart rate Oxygen saturation Systolic And Diastolic Provider Name and Address Organization Details Last Updated DateTime 4 153.04 cm 37.6 kg/m2 88530.9 2 g 57 /min 97 % 140/78 mm[Hg] Kiara Brooks [facility] 4 14:42:41 Date Recorded Body height Body mass index (BMI) Body weight Oxygen saturation Heart rate Systolic And Diastolic Provider Name and Address Organization Details Last Updated DateTime 5 154.94 cm 36.8 kg/m2 90886.5 1 g 94 % 60 /min 136/72 mm[Hg] CAROLE VINSONHUMERA [facility] 5 10:19:37 Date Recorded Body height Body mass index (BMI) Body weight Heart rate Oxygen saturation Systolic And Diastolic Provider Name and Address Organization Details Last Updated DateTime 4 154.94 cm 37.4 kg/m2 25215.2 9 g 55 /min 98 % 142/82 mm[Hg] Fredo Summerfield [facility] 4 14:51:27 Social History Question Answer Notes LastModified by Organizat ion Details LastModified Time Tobacco Smoking Status Former Smoker Not Available [facility] 05/13/2020 03:36:24 What Was The Date Of [...] quadrivalent, preservative 05/07/20 21 completed Paige saab [facility] 09/14/2021 13:40:52 COVID-19, mRNA, LNP-S, PF, 100 mcg/0.5mL dose or 50 mcg/0.25mL dose 06/19/20 21 jeronimo saab [facility] 09/14/2021 13:40:28 Tdap 03/18/20 21 [facility] 13:40:37 zoster recombinant 07/29/19 22 [facility]/14/2021 13:41:31 zoster, unspecified formulation 10/17/19 22 completed Hematn Santana, DO [address] [place], [address], [facility] 10/17/2021 15:10:52 Influenza, split virus, quadrivalent, preservative 04/20/20 18 completed Hemant Santana, DO [address] [place], [address], [facility] 04/21/2018 08:32:15 influenza, unspecified formulation 05/19/20 22 [facility] 09/03/2022 14:28:44 Influenza, split virus, quadrivalent, preservative 03/20/20 19 completed Dea [facility] 03/21/2019 08:22:51 Influenza, split virus, quadrivalent, preservative 04/02/20 20 completed Paige [facility] 06/09/2020 10:01:48 Tdap 11/13/19 10 [facility] 03/17/2018 10:16:06 zoster, unspecified formulation 07/27/19 15 [facility] 03/17/2018 10:16:41 pneumococcal polysaccharide PPV23 03/11/20 15 [facility] 03/17/2018 10:17:11 Pneumococcal conjugate PCV 13 05/11/20 16 [facility] 03/17/2018 10:17:28 COVID-19, mRNA, LNP-S, PF, 100 mcg/0.5mL dose or 50 mcg/0.25mL dose 09/04/19 21 [facility] 12/19/2020 11:34:13 COVID-19, mRNA, LNP-S, PF, 100 mcg/0.5mL dose or 50 mcg/0.25mL dose 10/03/19 21 completed Dea saab [facility] 12/19/2020 11:34:18 Past Encounters Encounter ID Performer Location Encounter Start Date Encounter Closed Date Diagnosis/Indication Diagnosis SNOMED-CT Code Diagnosis ICD10 Code Diagnosis IMO Codes Diagnosis Note [id number] Hemant Santana [facility] [address] [facility] [address] [address] 12/12/2017 10:39:41 12/12/2017 16:26:32 Panic disorder 136437758 F41.0 will change her sertrtalin e to duloxetine Essential hypertension 13079839 I10 going to k bp with reg sphyg not electronic Pneumonia 805687297 J18. 9 will need f/u cxr [id number] Hemant Santana [facility] [address] [facility] [address] [address] 01/04/2018 16:08:38 01/04/2018 16:51:05 Essential hypertension 16239203 I10 elevated today, likely 2/2 illness/pa in/headach e Acid reflux 305957744 K2 1.9 continue omeprazole Nausea and vomiting 1693 2000 R11.2 likely viral gastroente ritis PUSH FLUIDS, BLAND DIET gradual diet progressio n as improved if dehydratio n worsens go to ED - pt understood Jaw pain 789091822 R68.8 4 likely combinatio n of injury and jaw clenching Headache 82875108 R51 again multifacto rial due to injury, jaw clenching and now with n/v - dehydratio n push fluids take tylenol as nsaids may further upset stomach [id number] Hemant Santana DO [facility] [address] [facility] [address] [address] 03/17/2018 09:57:57 03/17/2018 11:02:08 Essential hypertension 84767295 I10 bp stable doing well Peripheral visual field defect 72186487 H53.40 poss TIA vs migraine will need to have a ct scan as well and `rechk due to acute episode of visual fioeld deficit and right upper lip numbness with resolution Impaired f asting glycemia 152476990 R73.01 a1c [id number] Hemant Freedmancyndi [facility] [address] [facility] [address] [address] 2019 15:56:26 2019 16:39:53 Thalamic infarction 947962652 I63.81 will need to get into therapy for speech etc Essential hypertension 62549269 I10 bp stable doing well and is running a bit higher than norm but this is ok ans we will follow in the next 10 days [id number] Hemant BlackmanVanita Santana [facility] [address] [facility] [address] [address] 04/13/2019 12:07:34 04/13/2019 12:49:19 Essential hypertension 75185951 I10 bp stable doing well and is running a bit higher than norm but this is ok ans we will follow in the next 10 days Thalamic infarction 4272 49408 I63.81 will need to get into therapy for speech etc long discussion re re wiring brain and need for aggressive mental exercises [id number] Hemant Neil Brittani [facility] [address] [facility] [address] [address] 05/18/2019 15:35:21 05/18/2019 16:12:19 Thalamic infarction 969716005 I63.81 will need to get into therapy for speech etc long discussion re re wiring brain and need for aggressive mental exercises Impaired f asting glycemia 801854090 R73.01 a1c pending Essential hypertension 07657976 I10 bp stable doing well and is running a bit higher than norm but this is ok ans we will follow in the next 10 days [id number] Hemant Santana [facility] [address] [facility] [address] [address] 05/25/2019 13:51:49 05/25/2019 14:14:17 Essential hypertension 81149357 I10 bp stable doing well and is running a bit higher than norm but this is ok ans we will follow in the next 10 days [id number] Hemant Santana [facility] [address] [facility] [address] [address] 07/23/2019 10:21:44 07/23/2019 10:59:05 Hepatitis C screening 205143387 Z11.59 Will check Thalamic infarction 4272 76174 I63.81 will need to get into therapy for speech etc long discussion re re wiring brain and need for aggressive mental exercises Is doing very well and has completed rehab Essential hypertension 14806257 I10 bp stable doing well and is running a bit higher than norm but this is ok and we will follow in the next 10 days Is well controlled Hypercholesterolemia 136 91389 E78.00 Will check Impaired f asting glycemia 808188605 R73.01 Will recheck [id number] Hemant Santana [facility] [address] [facility] [address] [address] 08/15/2019 11:23:13 08/15/2019 11:48:32 Benign paroxysmal positional vertigo 201197766 H81.12 +nystagmus , will do brain MRI non-urgent ly Encouraged drinking more fluids If lasts longer than 10 minutes take meclizine OTC Essential hypertension 19383201 I10 Is well controlled currently DIzziness doesn't seem to be associated with hypotensio n [id number] Hemant Santana [facility] [address] [facility] [address] [address] 10/22/2019 10:10:18 10/22/2019 10:33:50 Essential hypertension 82641905 I10 Is well controlled currently DIzziness doesn't seem to be associated with hypotensio n Impaired f asting glycemia 047296293 R73.01 Will recheck a1c has not beenchecke d in quite a while Hypercholesterolemia 136 78272 E78.00 Will check lab this time Thalamic infarction 4272 30258 I63.81 continues to do quite well states her memory has retyrned and is almost back to baseline joselin distant memory ambulates well [place] [id number] Hemant Santana [facility] [address] [facility] [address] [address] 02/27/2020 14:22:05 02/27/2020 15:19:11 Essential hypertension 02016327 I10 Is well controlled currently DIzziness doesn't seem to be associated with hypotensio n Thalamic infarction 4272 85078 I63.81 continues to do quite well states her memory has retyrned and is almost back to baseline joselin distant memory ambulates well no weakness or instabilit y Impaired f asting glycemia 769334040 R73.01 Will recheck a1c has not beenchecke d in quite a while Type 2 sung betes mellitus 54684236 E11.9 new dx and she has climbed up to 6. so she is still safe but must watch diet Hypercholesterolemia 136 74562 E78.00 LDL 63 [id number] Hemant Santana DO [facility] [address] [facility],[place] [address] 06/09/2020 09:57:38 06/09/2020 10:45:49 Type 2 diabetes mellitus 24049226 E11.9 new dx and she has climbed up to 6. so she is still safe but must watch diet we will check a1c now Essential hypertension 62023862 I10 Is well controlled currently DIzziness doesn't seem to be associated with hypotensio n Hepatitis C screening 41 9550051 Z11.59 Will check Osteopenia 503673767 M85 .80 Thalamic infarction 4272 64964 I63.81 continues to do quite well states her memory has retyrned and is almost back to baseline joselin distant memory ambulates well no weakness or instabilit y Vertigo 846921997 R42 appears to be a benign form and unrelated to her cva will use meclizine for now and ss how she does Hypercholesterolemia 136 83669 E78.00 LDL 63 Lumbago with sciatica 20 0813635 M54.42 has pain radiating down her left thigh to her knee very sore throbbing pain always present less intense at times but debilitati ng when at its worse [id number] Hemant Santana, [facility] [address] [facility],[place] [address] 08/15/2020 13:32:59 08/15/2020 15:41:43 Essential hypertension 74967194 I10 Is well controlled currently bps at home running 130-140's systol DIzziness doesn't seem to be associated with hypotensio n but overall is much better states has def improved Type 2 sung betes mellitus 37598204 E11.9 new dx and she has climbed up to 6. 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 so she is still safe but must watch diet we will check a1c next month she has not been getting lab work as indicated i will give her more paper lab orders Hypercholesterolemia 136 29009 E78.00 LDL 63 Essential hypertension 63095903 I10 Is well controlled currently bps at home running 130-140's systol DIzziness doesn't seem to be associated with hypotensio n but overall is much better states has def improved Thalamic infarction 4272 66914 I63.81 continues to do quite well states her memory has returned and is almost back to baseline joselin distant memory ambulates well no weakness or instabilit y Hepatitis C screening 41 7787055 Z11.59 Will check [id number] Hemant Neil Brittani [facility] [address] [facility] [address] [address] 01/02/2021 14:42:40 01/02/2021 15:19:56 Type 2 diabetes mellitus 11792262 E11.9 dx and she has climbed up to 8.4. so she is still safe but must watch diet we will check a1c next month she has not been getting lab work as indicated i will give her more paper lab orders Intertrigo of abdominal skin fold 935649805 L30.4 will have her try clotrim and dev creams Urinary incontinence 165 898498 R32 [id number] Hemant Neil Brittani [facility] [address] [facility] [address] [address] 03/09/2021 14:53:02 03/09/2021 15:35:47 Type 2 diabetes mellitus 81717155 E11.9 now she is at a1c 7.5 but she had climbed up to 8.4. so she is still safe but must watch diet we will check a1c next 3 month she has not been getting lab work as indicated i will give her more paper lab orders Essential hypertension 67164270 I10 Is well controlled currently bps at home running 130-140's systol but has not checked at home much DIzziness doesn't seem to be associated with hypotensio n but overall is much better states has def improved Acid reflux 606614901 K2 1.9 asymptomat ic Thalamic infarction 4272 78673 I63.81 continues to do quite well states her memory has returned and is almost back to baseline joselin distant memory ambulates well [place] [id number] Hemant Santana [facility] [address] [facility],[place] [address] 06/15/2021 10:40:13 06/15/2021 12:43:15 Type 2 diabetes mellitus 30060326 E11.9 she is now 8.4 last february she was at a1c 7.5 but she had climbed up to 8.4.in the spring so she is still safe but must watch diet we will check a1c next 3 month she is getting lab work as indicated i will give her more paper lab orders Essential hypertension 20349754 I10 Is well controlled currently bps at home running 130-140's systol but has not checked at home much DIzziness doesn't seem to be associated with hypotensio n but overall is much better states has def improved Thalamic infarction 4272 50933 I63.81 continues to do quite well states her memory has returned and is almost back to baseline joselin distant memory ambulates well no weakness [place]abilit [facility] [id number] [facility] [address] [facility],[place] [address] 09/14/2021 11:18:03 09/14/2021 15:12:46 Type 2 diabetes mellitus 90472174 E11.9 she is now 7.2 with trulicity7 [...] her more paper lab orders Essential hypertension 65345867 I10 Is well controlled currently bps at home running 140's-150 systol but has not checked at home muchso will increase to full tablet of metoprolol 50has had occ dizziness at timesDIzzi ness doesn't seem to be associated with hypotensio n but overall is much better states has def improved Thalamic infarction 4272 92939 I63.81 continues to do quite well states her memory has returned and is almost back to baseline joselin distant memory ambulates well no weakness [place]it y [id number] Hemant Santana [facility] [address] [facility] [address] 02/22/2022 15:29:04 02/22/2022 16:26:17 Type 2 diabetes mellitus 57258495 E11.9 she is now 7.2 with trulicity7 [...] her more paper lab orders Essential hypertension 08990800 I10 Is well controlled currently bps at home running 140's-150 systol but has not checked at home muchso will increase to full tablet of metoprolol 50has had occ dizziness at timesDIzzi ness doesn't seem to be associated with hypotensio n but overall is much better states has def improved Hypercholesterolemia 136 38002 E78.00 LDL 63 Thalamic infarction 4272 74068 I63.81 continues to do quite well states her memory has returned and is almost back to baseline joselin distant memory ambulates well no weakness or instabilit y Pain of sa croiliac joint 413993631 M53.3 Screening mammography 24 068213 Z12.31 [id number] Hemant Santana, [facility] Internal Medicine [address] [facility],[place] [address] 02/26/2022 11:11:28 02/26/2022 12:04:53 Acute urinary tract infection 640716762 N39.0 [id number] Hemant Santana [facility] Internal Medicine [address] [facility],[place] [address] 09/03/2022 14:06:57 09/03/2022 16:07:27 Type 2 diabetes mellitus 02047099 E11.9 she is now7.0 was 6.8 7.2 with trulicity but must watch dietwe will increase trulicity to 1.5we will check a1c next 3 month she is getting lab work as indicated i will give her more paper lab orders Essential hypertension 63812487 I10 Is well controlled currently bps at home running 140's-150 systol but has not checked at home muchso will increase to full tablet of metoprolol 50has had occ dizziness at timesDIzzi ness doesn't seem to be associated with hypotensio n but overall is much better states has def improved Thalamic infarction 4272 79687 I63.81 continues to do quite well states her memory has returned and is almost back to baseline joselin distant memory ambulates well no weakness or instabilit y [id number] Hemant Santana [facility] Internal Medicine [address] [facility] [address] 11/26/2022 13:31:14 11/26/2022 14:14:21 Essential hypertension 41099878 I10 Is well controlled currently bps at home running 140's-150 systol but has not checked at home muchso will increase to full tablet of metoprolol 50has had occ dizziness at timesDIzzi ness doesn't seem to be associated with hypotensio n but overall is much better states has def improved Thalamic infarction 4272 07793 I63.81 continues to do quite well states her memory has returned and is almost back to baseline joselin distant memory ambulates well no weakness or instabilit y Type 2 sung betes mellitus 66501197 E11.9 she is now down to 6.6 wwas 7.0 was 6.8 7.2 with trulicity but must watch dietwe will increase trulicity to 1.5we will check a1c next 3 month she is getting lab work as indicated i will give her more paper lab orders Pain of sa croiliac joint 805269987 M53.3 state not having much discomfort no major complaints [id number] Hemant Santana [facility] Internal Medicine [address] [facility] [address] 03/01/2023 13:54:56 03/01/2023 14:38:07 Essential hypertension 16825776 I10 Is well controlled currently bps at home running 140's Hypercholesterolemia 136 58787 E78.00 LDL 63 Cerebrovas cular accident of thalamus 1140660017 56796566 I63.89 stable an d no further issues thus far meds will be continued Pre-surger y evaluation 609571639 Z01.818 Per the 2017 ACC guidelines (revised) this patient is cleared for the proposed catatract surgery on ODpt understand s to take her usual medication s on the morning of her surgery.If needed, she is cleared to hold her clopidogre l for 3 days prior to surgery . [id number] Hemant Santana DO [facility] Internal Medicine [address] [facility],[place] [address] 05/31/2023 08:17:55 05/31/2023 14:18:36 Type 2 diabetes mellitus 27596687 E11.9 she is now down to 6.6 wwas 7.0 was 6.8 7.2 with trulicity but must watch dietwe will increase trulicity to 1.5we will check a1c next 3 month she is getting lab work as indicated i will give her more paper lab orders Hypercholesterolemia 136 89809 E78.00 LDL 63 Essential hypertension 95421853 I10 Is well controlled currently bps at home running 140's Cough 80206540 R05.9 came back ill from a cruise Sacral back pain 2793170 3 M54.50 [address] refer back to [address] calhoun did well with last inj [id number] Hemant Santana DO [facility] Internal Medicine [address] [facility],[place] [address] 09/05/2023 08:31:29 09/05/2023 16:37:56 Type 2 diabetes mellitus without complication 505102024 E11.9 a1c is 6.0 lost another 4lbs Cerebrovas cular accident 825111953 I63.89 stable and no issues Essential hypertension 02731367 I10 Is well controlled currently bps at home running 140's Hypercholesterolemia 136 92306 E78.00 LDL 63 [id number] Hemant Santana DO [facility] Internal Medicine [address] [facility],[place] [address] 12/19/2023 13:22:42 12/20/2023 11:52:08 Type 2 diabetes mellitus 04642975 E11.9 continues to drop wgt her last a1c was 6 lab done today PRIOR: she is now down to 6.6 wwas 7.0 was 6.8 7.2 with trulicity but must watch dietwe will increase trulicity to 1.5we will check a1c next 3 month she is getting lab work as indicated i will give her more paper lab orders Essential hypertension 05675219 I10 Is well controlled currently bps at home running 140's Hypercholesterolemia 136 51205 E78.00 LDL 63 Depression screening 171 939857 Z13.31 SCREENING NEGATIVE Cerebrovas cular accident of thalamus 5982449612 77341276 I63.89 stable an d no further issues thus far meds will be continued Pain of sa croiliac joint 710303934 M53.3 state not having much discomfort no major complaints [id number] Hemant Santana DO [facility] [address] [facility],[place] [address] 03/23/2024 14:36:46 03/23/2024 15:12:17 Essential hypertension 63234114 I10 Is well controlled currently bps at home running 140's Hypercholesterolemia 136 39193 E78.00 LDL 63 Type 2 sung betes mellitus without complication 540867412 E11.9 a1c is 6.0 lost another 5 we will hold the glipizide and see how she doescont the trulicity [id number] Hemant Santana DO [facility] Internal Medicine [address] [facility],[place] [address] 06/25/2024 14:43:04 06/25/2024 15:18:40 Adult health examination 396790447 Z00.00 loretta get fbw , doing well overall Screening for cardiovascular system disease 655636618 Z13.6 Screening for malignant neoplasm of colon 835327417 Z12.11 Screening for osteoporosis 247311676 Z13.820 Screening mammography 24 602168 Z12.31 Essential hypertension 48761308 I10 Is well controlled currently bps at home running 140's Hypercholesterolemia 136 26143 E78.00 LDL 63 Type 2 sung betes mellitus without complication 187381786 E11.9 a1c is 6.4 now off glipizide and doiong well [id number] Hemant Santana, [facility] Internal Medicine [address] [facility],[place] [address] 10/01/2024 13:21:19 10/01/2024 14:36:17 Type 2 diabetes mellitus 99964620 E11.9 continues to drop wgt her last [...] her more paper lab orders Essential hypertension 31298811 I10 Is well controlled currently bps at home running 140's Hypercholesterolemia 136 18250 E78.00 LDL 63 Depression screening 171 571242 Z13.31 SCREENING NEGATIVE Cerebrovas cular accident of thalamus 8366673572 34202903 I63.89 stable an d no further issues thus far meds will be continued [id number] Hemant Santana, [facility] Internal Medicine [address] [facility],[place] [address] 01/02/2025 10:15:48 01/02/2025 11:15:46 Type 2 diabetes mellitus 58433314 E11.9 continues to drop wgt her last [...] her more paper lab orders Essential hypertension 95613968 I10 Is well controlled currently bps at home running 140's Hypercholesterolemia 136 45528 E78.00 LDL 63 Depression screening 171 769519 Z13.31 SCREENING NEGATIVE 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 5609656264 5382825 M19.041 [id number] will try diclofenac [id number] Hemant Santana [facility] Internal Medicine [address] [facility] [address],[place] [address] 04/03/2025 10:10:33 04/03/2025 12:02:36 Depression screening 643618196 Z13.31 SCREENING NEGATIVE Essential hypertension 45202403 I10 Is well controlled currently bps at home running 130's Type 2 sung betes mellitus 10414191 E11.9 continues to drop wgt her last [...] itis of finger joint of right hand 4371965511 5393746 M19.041 [id number] still struggling but not interested in seeing hand dr Miguel [id number] R42 59701 will try holding amlodipine and they will [...] ID Guarantor Name 03/31/2025 1 [place]IC[place] B[place]: [employer] Manda Talavera [id number] Izabella Talavera 04/01/2025 2 [place]) [id number] Manda Talavera [id number] Izabella Talavera Notes Date Note Type [...] after eating Hemant YehudaVanita Santana, DO [address] [facility], [place], [address], [facility] 03/23/2024 15:00:57 06/25/20 [...] in the HPI Hemant Santana DO [address] [facility], [place], [address], [facility] Internal Medicine 06/25/2024 15:17:40 10/02/19 25 text/htm [...] is worried about Hemant Santana DO [address] [place], [address], [facility] Internal [facility] 10/01/2024 13:42:17 01/03/20 text/htm l [...] to cut hair Hemant Santana, DO [address] [place], [address], [facility] 01/02/2025 10:54:46 04/03/20 text/htm l Care Management - HypertensionReported by PatientFI[facility]ENTERor self care, patient reportsnot under emotional stress. [...] noted in the HPI Hemant Santana, DO [address] [place] [address], [place], [address], [facility] 04/03/2025 13:31:08 OBGyn Episode No OBEpisode recorded.
--- OUTSIDE RECORDS SUMMARY | 2025-06-11 11:38 | XMS_ITS | Encounter Summary ---
Author Organization [facility] Address [address] [facility] [address] [place] [address] Phone Care Team Providers Care Superintendent Commissary Name Role Phone Hemant Peter DO Primary Care Provider [phone] Encounter Details Date Type Department Care Team (Late Contact Info) Description 06/09/2020 Ancillary Orders Virtual Department [address] [place] [address] Hemant Peter DO [address] [place] [address] [email or web address] Other specified disorders of bone density and [...] Info) Description 09/25/2025 1:15 PM EDT Appointment [facility], Bone Density - [facility] [address] [place] [address] Hemant Peter DO [address] [place] [address] [email or web address] documented as of this encounter Results * [...] documented as of this encounter Care Teams Superintendent Commissary Relationship Specialty Start Date End Date Hemant Peter DO [email or web address] PCP - General Internal Medicine 06/14/17 documented as of this encounter Additional Source Comments The information contained in this document represents components of the legal health record. It is not the complete legal health record.[facility]
--- OUTSIDE RECORDS SUMMARY | 2025-06-11 11:38 | XMS_ITS | Encounter Summary ---
Author Organization [facility] Address [address] [place] [address] Phone Care Team Providers Care Zipper Measurer Name Role Phone Hemant Peter Primary Care Provider [phone] Encounter Details Date Type Department Care Team (Late st Contact Info) Description 03/24/2019 Procedure Pass [address] [address] Social History Tobacco Use Types Packs/Day Years [...] Info) Description 09/25/2025 1:15 PM EDT Appointment [address] [place] [address] Hemant Peter DO [address] [facility] [place] [address] [email or web address] documented as of this encounter Visit Diagnoses Not on filedocumented in this encounter Additional Health Concerns Infection Onset Date Last Indicated Resolved Time CoV-Risk 09/07/2023 09/07/2023 09/18/2023 1:21 AM EST documented as of this encounter Care Teams Zipper Measurer Relationship Specialty Start Date End Date Hemant Peter DO PCP - General Internal Medicine 06/14/17 documented as of this encounter Additional Source Comments The information contained in this document represents components of the legal health record. It is not the complete legal health record.[facility]
--- OUTSIDE RECORDS SUMMARY | 2025-06-11 11:38 | XMS_ITS | Encounter Summary ---
Author Organization [facility] Address [address] [place] [address] Phone Care Team Providers Care Ruling Technician Name Role Phone Hemant Peter DO Primary Care Provider [phone] Encounter Details Date Type Department Care Team (Late st Contact Info) Description 03/24/2019 Procedure Pass [facility], [address] [address] Social History Tobacco Use Types Packs/Day Years [...] Info) Description 09/25/2025 1:15 PM EDT Appointment [address] [address] Hemant Peter DO [address] [facility] [place] [address] [email or web address] documented as of this encounter Visit Diagnoses Not on filedocumented in this encounter Additional Health Concerns Infection Onset Date Last Indicated Resolved Time CoV-Risk 09/07/2023 09/07/2023 09/18/2023 1:21 AM EST documented as of this encounter Care Teams Ruling Technician Relationship Specialty Start Date End Date JasminaHemant hanna DO Yehuda [email or web address] PCP - General Internal Medicine 06/14/17 documented as of this encounter Additional Source Comments The information contained in this document represents components of the legal health record. It is not the complete legal health record.[facility]
--- OUTSIDE RECORDS SUMMARY | 2025-06-11 11:38 | XMS_ITS | Encounter Summary ---
Author Organization [facility] Address [address] [facility] [address] [place] [address] Phone Care Team Providers Care Feedmobile Driver Name Role Phone Unknown, Unknown Primary Care Provider Hemant Johnson DO Primary Care Provider [phone] Encounter Details Date Type Department Care Team (Late st Contact Info) Description 04/30/2017 Ancillary Orders [address] [address] Hemant Peter DO [address] [facility] [place] [address] [email or web address] Visit for screening mammogram Social History Tobacco [...] Info) Description 09/25/2025 1:15 PM EDT Appointment [facility], [address] [address] Hemant Peter DO [address] [facility] [place] [address] documented as of this encounter Results * [...] documented as of this encounter Care Teams Feedmobile Driver Relationship Specialty Start Date End Date Unknown, Unknown, PCP - General 04/30/17 06/13/17 Hemant Peter DO [email or web address] PCP - General Internal Medicine 06/14/17 documented as of this encounter Additional Source Comments The information contained in this document represents components of the legal health record. It is not the complete legal health record.[facility]
--- OUTSIDE RECORDS SUMMARY | 2025-06-11 11:38 | XMS_ITS | Encounter Summary ---
Author Organization [facility] Address [address] [facility] [address] [place] [address] Phone Care Team Providers Care Software Project Lead Name Role Phone Hemant Peter DO Primary Care Provider [phone] Encounter Details Date Type Department Care Team (Late st Contact Info) Description 03/17/2018 Transcribe Orders [address] [address] Hemant Peter DO [address] [facility] [place] [address] [email or web address] Hypertension, unspecified type (Primary Dx) Social History [...] Info) Description 09/25/2025 1:15 PM EDT Appointment [facility], Bone [facility] [address] [place] [address] Hemant Peter DO [address] [place] [address] [email or web address] documented as of this encounter Results * (ABNORMAL) Basic metabolic panel (03/17/2018 3:02 PM EDT) SODIUM 140 133 - 146 mmol/L [facility] CHLORIDE 103 96 - 108 mmol/L [facility] POTASSIUM 4.7 3.3 - 5.1 mmol/L [facility] CO2 26 21 - 35 mmol/L [facility] BUN 21(H) 6 - 19 mg/dL [facility] CREATININE 0.70 0.5 - 1.5 mg/dL [facility] GLUCOSE 124(H) 70 - 99 mg/dL [facility] CALCIUM 9.5 8.4 - 10.3 mg/dL [facility] EGFR 89 >59 mL/min/1.7 3m2 [facility] Comment:If patient is black, multiply result by 1.159. Estimated glomerular filtration rate calculated using the CKD-EPI equation. ANION GAP 16 10 - 20 mmol/L [facility] Blood 03/17/2018 3:02 PM EDT 03/17/2018 3:04 PM EDT us Hemant Peter DO LAB BLOOD BKR ORDERABLES Final R esult [address] [address] documented in this encounter Visit Diagnoses Diagnosis Hypertension, unspecified type- Primary documented in this encounter Additional Health Concerns Infection Onset Date Last Indicated Resolved Time CoV-Risk 09/07/2023 09/07/2023 09/18/2023 1:21 AM EST documented as of this encounter Care Teams Software Project Lead Relationship Specialty Start Date End Date Hemant Peter DO [email or web address] PCP - General Internal Medicine 06/14/17 documented as of this encounter Additional Source Comments The information contained in this document represents components of the legal health record. It is not the complete legal health record.[facility]
--- OUTSIDE RECORDS SUMMARY | 2025-06-11 11:38 | XMS_ITS | Continuity of Care Document ---
Author Organization [place] - [facility], [facility] Address [address] [facility] [place] [address] [place] [address] Assessment Encounter Date Assessment Date Assessment LastModified by Organization Details LastModified Time 04/03/2025 04/03/2025 [id number] [place] [id number] (JAW SKINNER) MDM MODERATE MUST MEET 2 OUT OF [...] Lab CMP, serum or plasma 2024 025 [facility], [address] [place] [address], [place], [address], 04/03/2025 10:49:28 CBC 2024 025 [facility], [address] [place] [address], [address], 04/03/2025 10:49:29 lipid panel, blood 2024 025 [facility], [address] [place] [address], [place], [address], 04/03/2025 10:49:29 vitamin D, 25-hydro xy, total, serum 2024 025 [facility], [address] [facility], [place], [address], 04/03/2025 10:49:28 Referral None recorded . Procedures None recorded . Surgeries None recorded . Imaging None recorded . Medication Orders None recorded . Patient TargetsNo targets recorded. Patient Instructions Encounter Date Encounter Id Patient Instructions Last Modified By Organization Details Last Modified Time 04/03/2025 [id number] dizziness: care instructions Not available 04/03/2025 10:50:24 Reason for Referral None Reported. Results Created Date Observation Date Name Description Value Unit Range Abnormal Flag Note LastModifiedBy Organization Detail LastModifiedTime Result Notes None recorded. 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 2017 Not Available [facility] 2 12:05:38 Panic disorder 190236158 Active 2017 Not Available [facility] 2 12:05:38 Acid reflux 360279708 Active 2017 Not Available [facility] 2 12:05:38 Impaired fasting glycemia 042772689 Completed 201702/27/2020 Hemant Santana DO [address] [place] [address], [address], [facility] 0 14:53:49 Thalamic infarcti on 007290018 Active 2018 Not Available [facility] 2 12:05:38 Type 2 diabetes mellitus 16426804 Active 2019 Hemant Santana, [address] [place] [address], [address], [facility] 5 10:45:21 Lumbosac ral radiculi tis 74180678 Active 2021 Hemant Santana DO [address] [place] [address], [address], [facility] 2 16:05:19 Pain of sacroili ac joint 586496580 Active 2021 Hemant Santana DO [address] [place] [address], [address], [facility] 2 16:05:29 Acute urinary tract infectio n 904141236 Active 2021 Hemant Santana DO [address] [place] [address], [address], [facility] 2 10:54:39 COVID-19 015740964 Active 2022 Hemant Santana DO [address] [place] [address], [address], [facility] 3 14:51:15 Cerebrov ascular accident of thalamus 5371358605 32804474 Active 2022 Hemant Santana DO [address] [place] [address], [address], [facility] 3 14:24:38 Cough 46041720 Active 2022 Hemant Santana DO [address] [place] [address], [address], [facility] 3 14:10:02 Sacral back pain 15928136 Active 2022 Hemant YehudaVanita Santana DO [address] [place] [address], [address], [facility] 3 14:13:46 Type 2 diabetes mellitus without complica tion 368904815 Active 2023 Hemant YehudaVanita Santana DO [address] [place] [address], [address], [facility] 5 11:09:56 Cerebrov ascular accident 671294746 Active 2023 Hemant Santana DO [address] [place] [address], [address], [facility] 4 14:31:17 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 Procedures Surgical History Date Name Laterality Status Provider Name and Address Organization Details Recorded Time 09/19/19 16 Colonoscopy completed Hemant Santana DO [address] [place] [address], [address], [facility] 03/14/2018 15:12:08 Imaging Results None recorded. Procedure Notes None recorded. Medical Equipment None Reported. Allergies Allergen ID Allergen Name Allergen Category Reaction Reaction Severity Criticality Documentation Date Start Date Code Code System Note Provider Name and Address Organization Details Recorded Time 1522 Bactrim medicatio n Not available Not available Not available 12/12/2017 70530 9 Rx[facility] 8 08:43:39 Medications Name Sig Start [...] Updated DateTime 5 154.94 cm 36.8 kg/m2 51184.5 1 g 94 % 60 /min 136/72 mm[Hg] CAROLE AYOUB [facility] 5 10:19:37 Social History Question Answer Notes LastModified by Organizat ion Details LastModified Time Tobacco Smoking Status Former Smoker Not Available [facility] 05/13/2020 03:36:24 What Was The Date Of Your Most Recent Tobacco Screening? 04/03/2025 [email or web address] Information not available 04/03/2025 Sex: Unknown Functional Status Question Answer Note LastModified by Organization D etails LastModified Time Do you or have you ever used any other forms of tobacco or nicotine? No [email or web address] Information not available 11/26/2022 Mental Status None recorded. Family History Nothing Reported. Medical History No medical history recorded. Gynecological HistoryNo gynecological history recorded. Obstetrics History GPAL:G 0 P 0 0 0 0 Immunizations Vaccine Type Date Status Note Provider Nam e and Address Organization Details Recorded Time Influenza, split virus, quadrivalent, preservative 05/07/20 21 completed Paige saab [facility] 09/14/2021 13:40:52 COVID-19, mRNA, LNP-S, PF, 100 mcg/0.5mL dose or 50 mcg/0.25mL dose 06/19/20 21 completed Paige saab [facility] 09/14/2021 13:40:28 Tdap 03/18/20 21 jeronimo saab [facility] 09/14/2021 13:40:37 zoster recombinant 07/29/19 22 completed Paige saab [facility] 09/14/2021 13:41:31 zoster, unspecified formulation 10/17/19 22 completed Hemant Santana, [address] [place], [address], [facility] 10/17/2021 15:10:52 Influenza, split virus, quadrivalent, preservative 04/20/20 18 completed Hemant Santana, DO [address] [place], [address], [facility] 04/21/2018 08:32:15 influenza, unspecified formulation 05/19/20 22 [facility] 09/03/2022 14:28:44 Influenza, split virus, quadrivalent, preservative 03/20/20 19 [facility] 03/21/2019 08:22:51 Influenza, split virus, quadrivalent, preservative 04/02/20 20 [facility] 06/09/2020 10:01:48 Tdap 11/13/19 10 completed Paige saab [facility] 03/17/2018 10:16:06 zoster, unspecified formulation 07/27/19 15 [facility] 03/17/2018 10:16:41 pneumococcal polysaccharide PPV23 03/11/20 15 jeronimo saab [facility] 03/17/2018 10:17:11 Pneumococcal conjugate PCV 13 05/11/20 16 [facility] 03/17/2018 10:17:28 COVID-19, mRNA, LNP-S, PF, 100 mcg/0.5mL dose or 50 mcg/0.25mL dose 09/04/19 21 completed Dea saab [facility] 12/19/2020 11:34:13 COVID-19, mRNA, LNP-S, PF, 100 mcg/0.5mL dose or 50 mcg/0.25mL dose 10/03/19 21 completed Dea saab [facility] 12/19/2020 11:34:18 Past Encounters Encounter ID Performer Location Encounter Start Date Encounter Closed Date Diagnosis/Indication Diagnosis SNOMED-CT Code Diagnosis ICD10 Code Diagnosis IMO Codes Diagnosis Note [id number] DO [facility] [address] [facility] [address],[place] [address] 04/03/2025 10:10:33 04/03/2025 12:02:36 Depression screening 899416339 Z13.31 SCREENING NEGATIVE Essential hypertension 31953956 I10 Is well controlled currently bps at home running 130's Type 2 sung betes mellitus 45052954 E11.9 continues to drop wgt her last [...] itis of finger joint of right hand 9532908406 8958631 M19.041 9689556708 still struggling but not interested in seeing hand dr Dizziness 031737940 R42 56205 will try holding amlodipine and they will [...] [place] Manda Talavera [id number] Izabella Talavera 04/03/2025 2 [place]) [id number] Manda Talavera [id number] Izabella Talavera Notes Date Note Type [...] in the HPI Hemant Santana, DO [address] [facility], [place], [address], [facility] 04/03/2025 13:31:08 OBGyn Episode No OBEpisode recorded.
--- OUTSIDE RECORDS SUMMARY | 2025-06-11 11:38 | XMS_ITS | Encounter Summary ---
Author Organization [facility] Address [address] [place] [address] Phone Care Team Providers Care Senior Gis Analyst Name Role Phone Hemant Peter Primary Care Provider [phone] Encounter Details Date Type Department Care Team (Late st Contact Info) Description 06/25/2024 Procedure Pass [address] [address] Social History Tobacco Use Types Packs/Day Years [...] Info) Description 09/25/2025 1:15 PM EDT Appointment [facility], [address] [place] [address] Hemant Peter DO [address] [facility] [address] [place] [address] [email or web address] documented as of this encounter Visit Diagnoses Not on filedocumented in this encounter Care Teams Senior Gis Analyst Relationship Specialty Start Date End Date Hemant Peter DO [email or web address] PCP - General Internal Medicine 06/14/17 documented as of this encounter Additional Source Comments The information contained in this document represents components of the legal health record. It is not the complete legal health record.[facility]
--- OUTSIDE RECORDS SUMMARY | 2025-06-11 11:38 | XMS_ITS | Encounter Summary ---
Author Organization [facility] Address [address] [address] Phone Care Team Providers Care Process Project Engineer Name Role Phone Hemant Peter DO Primary Care Provider [phone] Reason for Referral * MRI/CAT Scan - Closed Specialty Diagnoses / Procedures Referred By Contac t Referred To Contact Radiology Diagnoses Peripheral visual field defect, unspecified laterality Procedures CT Head Hmeant Peter DO Phone: tel: fax: [email or web address] Referral ID Status Reason Start Date Expiration Date Visits Re quested Visits Authorized [id number] Closed 03/17/2018 03/17/2019 1 1 Encounter Details Date Type Department Care Team (Late st Contact Info) Description 03/17/2018 Ancillary Orders Virtual Department 30 [place] [address] Hemant Peter DO [address] [facility] [place] [address] [email or web address] Peripheral visual field defect, [...] Info) Description 09/25/2025 1:15 PM EDT Appointment [facility], Bone [facility] [address] [place] [address] Hemant Peter DO [address] [facility] [place] [address] [place] [address] [email or web address] documented as of this encounter Results * [...] documented as of this encounter Care Teams Process Project Engineer Relationship Specialty Start Date End Date Hemant Peter DO [email or web address] PCP - General Internal Medicine 06/14/17 documented as of this encounter Additional Source Comments The information contained in this document represents components of the legal health record. It is not the complete legal health record.[facility]
--- OUTSIDE RECORDS SUMMARY | 2025-06-11 11:38 | XMS_ITS | Encounter Summary ---
Author Organization [facility] Address [address] [facility] [address] [place] [address] Phone Care Team Providers Care Chemical Educator Name Role Phone Hemant Peter DO Primary Care Provider [phone] Encounter Details Date Type Department Care Team ([facility] st Contact Info) Description 06/25/2024 Transcribe Orders Virtual Department [address] [place] [address] Hemant Peter DO [address] [facility] [place] [address] [place] [address] [email or web address] Encounter for screening mammogram [...] Info) Description 09/25/2025 1:15 PM EDT Appointment [facility], Bone Density - [facility] [address] [place] [address] Hemant Peter, [address] [facility] [place] [address] [place] [address] [email or web address] Scheduled Orders Name Type Priority Associated Diagnoses [...] breast documented in this encounter Care Teams Chemical Educator Relationship Specialty Start Date End Date Hemant Peter DO [email or web address] PCP - General Internal Medicine 06/14/17 documented as of this encounter Additional Source Comments The information contained in this document represents components of the legal health record. It is not the complete legal health record.[facility]
--- OUTSIDE RECORDS SUMMARY | 2025-06-11 11:38 | XMS_ITS | Encounter Summary ---
Author Organization [facility] Address [address] [facility] [address] [place] [address] Phone Care Team Providers Care Kennel Manager Name Role Phone Hemant Peter DO Primary Care Provider [phone] Encounter Details Date Type Department Care Team (Late st Contact Info) Description 03/18/2021 Procedure Pass [facility], Ct Scan - [address] [address] Social History Tobacco Use Types Packs/Day Years [...] 5:22 AM EDT Stephanie Rice RN * [place] Suicide Severity Rating Scale (Screener/Recent Self-Report) Question [...] Description 09/25/2025 1:15 PM EDT Appointment [facility], Bone Density [facility] [address] [place] [address] Hemant Peter DO [address] [place] [address] [email or web address] documented as of this encounter Visit Diagnoses Not on filedocumented in this encounter Additional Health Concerns Infection Onset Date Last Indicated Resolved Time CoV-Risk 09/07/2023 09/07/2023 09/18/2023 1:21 AM EST documented as of this encounter Care Teams Kennel Manager Relationship Specialty Start Date End Date Hemant Peter DO PCP - General Internal Medicine 06/14/17 documented as of this encounter Additional Source Comments The information contained in this document represents components of the legal health record. It is not the complete legal health record.[facility]
--- OUTSIDE RECORDS SUMMARY | 2025-06-11 11:38 | XMS_ITS | Encounter Summary ---
Author Organization [facility] Address [address] [place] [address] Phone Care Team Providers Care Net Ui Developer Name Role Phone Hemant Peter DO Primary Care Provider [phone] Encounter Details Date Type Department Care Team (Late st Contact Info) Description 03/24/2019 Procedure Pass [facility] [place], [address] [address] Social History Tobacco Use Types Packs/Day Years [...] Info) Description 09/25/2025 1:15 PM EDT Appointment [address] [address] Hemant Peter DO [address] [facility] [place] [address] [email or web address] documented as of this encounter Visit Diagnoses Not on filedocumented in this encounter Additional Health Concerns Infection Onset Date Last Indicated Resolved Time CoV-Risk 09/07/2023 09/07/2023 09/18/2023 1:21 AM EST documented as of this encounter Care Teams Net Ui Developer Relationship Specialty Start Date End Date JasminaHemant hanna DO Yehuda [email or web address] PCP - General Internal Medicine 06/14/17 documented as of this encounter Additional Source Comments The information contained in this document represents components of the legal health record. It is not the complete legal health record.[facility]
--- OUTSIDE RECORDS SUMMARY | 2025-06-11 11:38 | XMS_ITS | Encounter Summary ---
Author Organization [facility] Address [address] [facility] [address] [place] [address] Phone Care Team Providers Care Environmental Health And Safety Leader Name Role Phone Hemant Peter DO Primary Care Provider [phone] Encounter Details Date Type Department Care Team (Late st Contact Info) Description 03/14/2018 Ancillary Orders [facility] Department [address] [place] [address] Hemant Peter DO [address] [place] [address] [email or web address] Breast screening Social History Tobacco Use Types [...] Info) Description 09/25/2025 1:15 PM EDT Appointment [facility], [facility] [address] [place] [address] Hemant Peter DO [address] [place], [place] [phone] documented as of this encounter Results * [...] There are scattered fibroglandular densities. POS - [id number] Narrative 06/16/2018 1:46 PM EST Full-field digital [...] There are scattered fibroglandular densities. POS - [id number] us Hemant A Bigda DO IMG MG EXAMS Final Result documented in this encounter Visit Diagnoses Diagnosis Breast screening Breast screening, unspecified Breast screening Breast screening, unspecified documented in this encounter Additional Health Concerns Infection Onset Date Last Indicated Resolved Time CoV-Risk 09/07/2023 09/07/2023 09/18/2023 1:21 AM EST documented as of this encounter Care Teams Environmental Health And Safety Leader Relationship Specialty Start Date End Date Hemant PeterDO [email or web address] PCP - General Internal Medicine 06/14/17 documented as of this encounter Additional Source Comments The information contained in this document represents components of the legal health record. It is not the complete legal health record.[facility]
--- OUTSIDE RECORDS SUMMARY | 2025-06-11 11:38 | XMS_ITS | Clinical Summary ---
Author Organization [facility] Address [address] [facility] [address] [place] [address] Phone Care Team Providers Care Tire Setter Name Role Phone Hemant Peter Primary Care Provider [phone] Allergies Active Allergy Reactions Criticality Noted Date [...] Info) Description 09/25/2025 1:15 PM EDT Appointment [facility], Bone Density - Main [address] [address] JasminacyndiHemant DO [address] [facility] [place] [address] Health Maintenance Due Date Last Done Comments [...] HEMOGLOBIN A1C 5.6 4.3 - 5.8 % [facility] Blood 03/26/2019 4:15 AM EDT 03/26/2019 5:48 AM EDT us Nabila Dawson PA-C, MS LAB BLOOD BKR ORD ERABLES Final Result [facility] [address] [place] [address] * (ABNORMAL) Basic metabolic panel (03/24/2019 5:48 AM EDT) SODIUM 142 133 - 146 mmol/L [facility] CHLORIDE 102 96 - 108 mmol/L [facility] POTASSIUM 4.4 3.3 - 5.1 mmol/L [facility] CO2 30 21 - 35 mmol/L [facility] BUN 19 6 - 19 mg/dL [facility] CREATININE 0.80 0.5 - 1.5 mg/dL [facility] GLUCOSE 156(H) 70 - 99 mg/dL [facility] CALCIUM 9.7 8.4 - 10.3 mg/dL [facility] EGFR 75 >59 mL/min/1.7 3m2 [facility] Comment:If patient is black, multiply result by 1.159. Estimated glomerular filtration rate calculated using the CKD-EPI equation. ANION GAP 14 10 - 20 mmol/L [facility] Blood 03/24/2019 5:48 AM EDT 03/24/2019 5:52 AM EDT us Sammy Selby MD, MS LAB BLOOD BKR ORDERABLES Final Result [facility] [address] [place] [address] from Last 3 Months or Most Recently Relevant to Health Maintenance Insurance MEDICARE PART A & B Member Subscriber Plan / Payer (Ef fective 2014-Present) Name:Carmen Kumar Member ID:[id number] Relation to Subscriber:Self Name:Sadaf Izabellanathan Subscriber ID:[id number] Payer ID:[id number] Group ID:Not on file Type:Medicare Address: [facility] [employer] [facility] [employer] [facility] [address] [place] [address] [place] [address] [employer] MEDEX SUPPLEMENT MEDICARE PART A & B [employer] MEDEX SUPPLEMENT MEDICARE PART A & B [employer] MEDEX SUPPLEMENT [facility] MEDEX SUPPLEMENT MEDICARE PART A & B [employer] MEDEX SUPPLEMENT MEDICARE PART A & B [employer] MEDEX SUPPLEMENT MEDICARE PART A & B [employer] MEDEX SUPPLEMENT MEDICARE PART A & B [employer] MEDEX SUPPLEMENT MEDICARE PART A & B [employer] MEDEX SUPPLEMENT Advance Directives For more information, please contact: [phone] (9AM - 5PM [facility], Tuesday-Tuesday) Documents on File Type Date Recorded Patient Inspector Finishing Expl anation Healthcare Proxy 03/28/2019 11:12 AM * Full Code (Presumed) (Latest Code Status on File) Date Activated Date Inactivated Comments 03/22/2019 11:07 PM 03/26/2019 8:20 PM Care Teams Tire Setter Relationship Specialty Start Date End Date Hemant Peter DO PCP - General Internal Medicine 06/14/17 Additional Source Comments The information contained in this document represents components of the legal health record. It is not the complete legal health record.[facility]
--- OUTSIDE RECORDS SUMMARY | 2025-06-11 11:38 | XMS_ITS | Encounter Summary ---
Author Organization [facility] Address [address] [facility] [address] [place] [address] Phone Care Team Providers Care Acoustical Tile Patternmaker Name Role Phone Hemant Peter DO Primary Care Provider [phone] Encounter Details Date Type Department Care Team (Late st Contact Info) Description 06/09/2020 Transcribe Orders Virtual Department [address] [place] [address] Hemant Peter DO [address] [place] [address] [email or web address] Left-sided low back pain with left-sided [...] Info) Description 09/25/2025 1:15 PM EDT Appointment [facility], [facility] [address] [place] [address] Hemant Peter DO [address] [place] [address] [email or web address] documented as of this encounter Results * [...] documented as of this encounter Care Teams Acoustical Tile Patternmaker Relationship Specialty Start Date End Date Hemant Peter DO [email or web address] PCP - General Internal Medicine 06/14/17 documented as of this encounter Additional Source Comments The information contained in this document represents components of the legal health record. It is not the complete legal health record.[facility]
--- OUTSIDE RECORDS SUMMARY | 2025-06-11 11:38 | XMS_ITS | Encounter Summary ---
Author Organization [facility] Address [address] [address] Phone Care Team Providers Care Pump Erector Helper Name Role Phone Hemant Peter DO Primary Care Provider [phone] Encounter Details Date Type Department Care Team (Late st Contact Info) Description 02/22/2022 Procedure Pass [facility], [address] [address] Social History Tobacco Use Types Packs/Day Years [...] Info) Description 09/25/2025 1:15 PM EDT Appointment [facility], [address] [address] Hemant Peter DO [address] [facility] [place] [address] [email or web address] documented as of this encounter Visit Diagnoses Not on filedocumented in this encounter Additional Health Concerns Infection Onset Date Last Indicated Resolved Time CoV-Risk 09/07/2023 09/07/2023 09/18/2023 1:21 AM EST documented as of this encounter Care Teams Pump Erector Helper Relationship Specialty Start Date End Date Hemant Peter DO [email or web address] PCP - General Internal Medicine 06/14/17 documented as of this encounter Additional Source Comments The information contained in this document represents components of the legal health record. It is not the complete legal health record.[facility]
--- OUTSIDE RECORDS SUMMARY | 2025-06-11 11:39 | XMS_ITS | Encounter Summary ---
Author Organization [facility] Address [address] [facility] [address] [place] [id number] Phone Care Team Providers Care Inspecting Engineer Name Role Phone Jasminacyndi Hemant Blackman DO Primary Care Provider [phone] Encounter Details Date Type Department Care Team (Late st Contact Info) Description 12/12/2017 Ancillary Orders Virtual Department [address] [place] [address] Hemant Peter DO [address] [place] [address] Pneumonia due to infectious organism, unspecified laterality, [...] 09/25/2025 1:15 PM EDT Appointment [facility] [address] [place] [address] Hemant Peter DO [address] [place] [address] documented as of this encounter Results * [...] documented as of this encounter Care Teams Inspecting Engineer Relationship Specialty Start Date End Date Hemant Peter DO PCP - General Internal Medicine 06/14/17 documented as of this encounter Additional Source Comments The information contained in this document represents components of the legal health record. It is not the complete legal health record.[facility]
--- OUTSIDE RECORDS SUMMARY | 2025-06-11 11:39 | XMS_ITS | Encounter Summary ---
Author Organization [facility] Address [address] [place] [address] Phone Care Team Providers Care Senior Commissary Agent Name Role Phone Hemant Peter DO Primary Care Provider [phone] Encounter Details Date Type Department Care Team (Late st Contact Info) Description 03/17/2018 Procedure Pass [facility], Ct Scan - [address] [address] Social History Tobacco Use Types Packs/Day Years [...] Info) Description 09/25/2025 1:15 PM EDT Appointment [facility], Bone Density - [address] [address] Hemant Peter DO [address] [facility] [place] [address] [email or web address] documented as of this encounter Visit Diagnoses Not on filedocumented in this encounter Additional Health Concerns Infection Onset Date Last Indicated Resolved Time CoV-Risk 09/07/2023 09/07/202309/18/2023 1:21 AM EST documented as of this encounter Care Teams Senior Commissary Agent Relationship Specialty Start Date End Date Hemant Peter DO [email or web address] PCP - General Internal Medicine 06/14/17 documented as of this encounter Additional Source Comments The information contained in this document represents components of the legal health record. It is not the complete legal health record.[facility]
[2025-06-11 14:23] LABS: Microalbum/Creatinine Ratio Ur 594.9 ug/mg cr (<30)
== END 2025-06-11 10:12 | disposition home or self-care (01) ==
LOC: HO.MANLDS 10:11
PROVIDERS: Visit Provider Internal Medicine
DX: E11.9 Type 2 diabetes mellitus without complications (principal)
CPT/HCPCS: 82043; 82570